=== PATIENT | male | born 1965 | race Caucasian/White ===

== ENCOUNTER 2020-11-26 04:47 | Emergency (ER) | payer MEDICARE, MEDICAID, SELFPAY ==
[2020-11-26 04:53] VITALS: BP 135/64; BP 140/90; PULSE 100; PULSE 110; RESP 20; TEMP 36.6; O2SAT 93; BMI 24.3
--- NOTE | 2020-11-26 04:59 | ED.SOB ---
HPI - SOB/Dyspnea General Chief Complaint: Asthma Stated Complaint: ASTHMA ATTACK ON&OFF FOR WEEKS,COUGH Time Seen by Provider: 11/26/20 04:59 Source: patient Mode of arrival: EMS Limitations: no limitations History of Present Illness HPI Narrative: Patient has history of asthma been feeling short of breath for last 1 week used the nebulizing treatment multiple times without much response been tested for COVID 2 weeks ago was negative no other family member is sick MD elicited complaint: shortness of breath and cough Pertinent past history: COPD and asthma Onset (ago): week(s) (1) Timing: constant Severity: moderate Known history of: COPD and asthma Treatment prior to arrival: bronchodilator Related Data Previous Rx's Medication Instructions Recorded prednisone 40 mg PO DAILY #10 tab 11/26/20 Allergies Allergy/AdvReac Type Severity Reaction Status Date / Time shellfish derived Allergy Severe ANAPHYLAXIS Verified 11/26/20 05:09 ibuprofen Allergy Intermediate Shortness Verified 11/26/20 05:10 of Breath mold [MOLD] Allergy Intermediate ASTHMA Verified 11/26/20 05:09 EXACERBATION DUST Allergy Intermediate ASTHMA Uncoded 11/26/20 05:09 EXACERBATION Review of Systems Review of Systems: Constitutional : No Weight loss, No Fever, No Chills ENT/Mouth : No sore throat, No Rhinorrhea Eyes: No Eye Pain, No Swelling Cardiovascular : No Chest Pain, no palpitations Respiratory : ++ Cough, No Sputum, ++shortness of breath Gastrointestinal : no Nausea, No Vomiting, No Diarrhea, No abdominal Pain, no black stools Genitourinary : No Dysuria, No Urinary Frequency Musculoskeletal : No joint pain, No Myalgias, No Joint Swelling Skin : No Skin Lesions, No rash Neuro : No Weakness, No Numbness, No Dizziness, No Headache Psych : No Anxiety/Panic, No Depression Heme/Lymph: No Bruising, No Lymphadenopathy Endocrine : No Polyuria, No Polydipsia All other systems reviewed and are negative PMFSH Social History Social History Smoking Status: Never smoker Use of substances other than those prescribed or required for medical reasons: No Advance Directives: No Physical Exam Vital Signs: Vital Signs: Last Vital Signs Temp 98 F 11/26/20 04:53 Pulse 81 11/26/20 06:05 Resp 19 11/26/20 05:04 BP 135/64 11/26/20 04:53 Pulse Ox 93 11/26/20 04:53 Body Mass Index 24.3 Appearance: Alert. Oriented X3. No acute distress. Eyes: Pupils equal, round and reactive to light. ENT: Pharynx normal. Neck: Normal inspection. Neck supple. CVS: Normal heart rate and rhythm. Pulses normal. Respiratory: Mild respiratory distress. Bilateral rhonchi and wheezing++ no rales or crackles Abdomen: Soft and nontender. Bowel sounds are present, no mass palpable, no CVA tenderness Skin: Skin warm and dry. Normal skin color. Normal skin turgor. Extremities: No lower extremity edema. Neuro: Oriented X 3. No motor deficit. No sensory deficit. MDM - SOB/Dyspnea Lab Data Result diagrams: 11/26/20 05:23 11/26/20 05:23 Labs: Lab Results 11/26/20 11/26/20 11/26/20 Range/Units 05:23 05:23 05:23 WBC 7.3 (4.8-10.8) X10*3/uL RBC 5.54 (4.60-5.80) X10*6/uL Hgb 16.8 (14.0-18.0) g/dl Hct 48.8 (42-52) % MCV 88.1 (80-98) fL MCH 30.3 (27.0-33.0) pg MCHC 34.4 (31.0-36.0) g/dl RDW 12.1 (11.0-16.0) % Plt Count 182 (160-400) X10*3/uL MPV 9.8 (9.4-12.4) fL Immature Gran % (Auto) 0.3 (0.0-0.4) % Neut % (Auto) 51.1 (45-73) % Lymph % (Auto) 28.3 (20-40) % [place] % (Auto) 7.1 (2-11) % Eos % (Auto) 12.8 H (0-4) % Baso % (Auto) 0.4 (0-2) % Lymph # (Auto) 2.1 (1.2-4.9) X10*3/uL [place] # (Auto) 0.5 (0.1-1.2) X10*3/uL Eos # (Auto) 0.9 H (0.0-0.4) X10*3/uL Baso # (Auto) 0.0 (0.0-0.2) X10*3/uL Abs Immat Gran (auto) 0.02 (0.00-0.03) X10*3/uL Absolute Neuts (auto) 3.7 (2.0-8.3) X10*3/uL Absolute Nucleated RBC 0.000 (0.0-0.012) X10*3/uL Nucleated RBC % (auto) 0.0 (0.0-0.2) /100WBC Sodium 140 (135-145) mmol/L Potassium 3.8 (3.3-5.1) mmol/l Chloride 105 (96-108) mmol/L Carbon Dioxide 27 (22-29) mmol/L Anion Gap 12 (12-20) BUN 15 (9-16) mg/dL Creatinine 0.99 (0.5-1.4) mg/dL Estim Creat Clear Calc 83.4 Estimated GFR > 60 Random Glucose 140 H (60-115) mg/dL Calcium 9.2 (8.4-10.2) mg/dL COVID-19 ([facility]) Negative (Negative) COVID-19 Clin Com See Note Discharge Plan Discharge Clinical Impression: Asthma with acute exacerbation Qualifiers: Asthma severity: moderate Asthma persistence: persistent Qualified Code(s): J45.41 - Moderate persistent asthma with (acute) exacerbation Patient Disposition: Home, Self-Care Instructions: Asthma (ED) Additional Instructions: Continue nebulizing treatment take prednisone as prescribed. Follow-up with your PCP and lung special Prescriptions: New prednisone 20 mg tablet 40 mg PO DAILY Qty: 10 RF: 0 Interventions: ED Discharge Assessment Last Done: 11/26/20 06:43
[2020-11-26 05:04] VITALS: RESP 19
--- NOTE | 2020-11-26 05:10 | XR_ITS ---
EXAMINATION: XR CHEST CLINICAL INFORMATION: Shortness of breath. Asthma. COMPARISON: 05/20/2020 TECHNIQUE: Frontal view of the chest was obtained. FINDINGS: Cardiac leads overlie the chest. The lungs are well expanded. There is no focal consolidation, edema, or effusion. No pneumothorax. The cardiomediastinal silhouette is within normal limits. No acute osseous abnormality. XR/XR chest 1V IMPRESSION: Clear lungs.
[2020-11-26 05:32] LABS: Basophils Percent Auto 0.4 % (0-2); Eosinophils Absolute Auto 0.9 X10*3/uL (0.0-0.4); Eosinophils Percent Auto 12.8 % (0-4); Hematocrit 48.8 % (42-52); Hemoglobin 16.8 g/dl (14.0-18.0); Imm Gran Abs Auto 0.02 X10*3/uL (0.00-0.03); Imm Gran Pct Auto 0.3 % (0.0-0.4); Lymphocytes Absolute Auto 2.1 X10*3/uL (1.2-4.9); Lymphocytes Percent Auto 28.3 % (20-40); MANUAL DIFF FLAG NO; Mean Corpuscular HGB Conc 34.4 g/dl (31.0-36.0); Mean Corpuscular Hemoglobin 30.3 pg (27.0-33.0); Mean Corpuscular Volume 88.1 fL (80-98); Mean Platelet Volume 9.8 fL (9.4-12.4); Monocytes Absolute Auto 0.5 X10*3/uL (0.1-1.2); Monocytes Percent Auto 7.1 % (2-11); Neutrophils Absolute Auto 3.7 X10*3/uL (2.0-8.3); Neutrophils Percent Auto 51.1 % (45-73); Platelet Count 182 X10*3/uL (160-400); Red Blood Count 5.54 X10*6/uL (4.60-5.80); Red Cell Distribution Width 12.1 % (11.0-16.0); White Blood Count 7.3 X10*3/uL (4.8-10.8)
[2020-11-26] MEDS: methylPREDNISolone Sod Succ/PF 125 MG/2 ML VIAL IVPUSH (05:32)
[2020-11-26] MEDS: Magnesium Sulfate/H2O 2 GM/50 ML PIGGYBACK IV (05:32)
[2020-11-26 05:45] LABS: COVID-19 Test Negative (Negative)
[2020-11-26 06:01] LABS: Anion Gap 12 (12-20); Blood Urea Nitrogen 15 mg/dL (9-16); Calcium 9.2 mg/dL (8.4-10.2); Carbon Dioxide 27 mmol/L (22-29); Chloride 105 mmol/L (96-108); Creatinine Clr Calc Pharmacy 83.4; Estimated Glomerular Filt Rate > 60; Glucose Random 140 mg/dL (60-115); Potassium 3.8 mmol/l (3.3-5.1); Sodium 140 mmol/L (135-145)
[2020-11-26] MEDS: Albuterol Sulfate (0.083%) 2.5 MG/3 ML VIAL.NEB 5 MG INHALE (06:03)
[2020-11-26] MEDS: Albuterol/Iprat 2.5/0.5MG 3 ML AMPUL.NEB INHALE (06:03)
[2020-11-26 06:05] VITALS: PULSE 81; O2SAT 97
[2020-11-26 07:16] VITALS: PULSE 18
== END 2020-11-26 07:17 | disposition home or self-care (01) ==
PROVIDERS: Emergency Provider Internal Medicine; PCP Internal Medicine
DX: J45.41 Moderate persistent asthma with (acute) exacerbation (principal); Z20.828 Contact with and (suspected) exposure to other viral communicable diseases
CPT/HCPCS: 36415; 71045; 80048; 85025; 87635; 94640; 96365; 96375; 99284; J2930; J3475

== ENCOUNTER 2021-07-25 15:10 | Emergency (ER) | payer MEDICARE, MEDICAID, SELFPAY | END 2021-07-25 15:53 | disposition left against medical advice (07) | PROVIDERS: Emergency Provider Emergency Medicine; PCP Internal Medicine | DX: R09.81 Nasal congestion (principal) ==

== ENCOUNTER 2022-04-05 15:45 | Emergency (ER) | payer MEDICARE, MEDICAID, SELFPAY ==
--- NOTE | 2022-04-05 | ECG_ITS ---
Test Reason : question sepsis Blood Pressure : / mmHG Vent. Rate : 100 BPM Atrial Rate : 100 BPM P-R Int : 144 ms QRS Dur : 106 ms QT Int : 342 ms P-R-T Axes : 071 090 058 degrees QTc Int : 441 ms Normal sinus rhythm Rightward axis Borderline ECG When compared with ECG of 20-MAY-2020 11:43, T wave amplitude has decreased in Anterior leads Referred By: Generic ED Physician Electronically Signed By:JOHN REECE MD
--- NOTE | ~2022-04-05 | CT_ITS ---
EXAMINATION: CT MAXILLOFACIAL WITHOUT CONTRAST CLINICAL INFORMATION: Fever and history of sinusitis. COMPARISON: None. TECHNIQUE: Multidetector helical imaging was performed in the axial plane with generation of coronal and sagittal reformatted images. This CT examination was performed using dose optimization techniques as appropriate, variously including the following: *Automated exposure control *Adjustment of mA and/or kV according to patient size (this includes techniques or standardized protocols for targeted exams where dose is matched to indication/reason for exam; i.e. extremities or head) *Use of iterative reconstruction technique DLP: 198 mGy-cm. FINDINGS: There is a moderate to large fluid level nearly opacifying the left maxillary sinus cavity. There are mixed density mucoid secretions and fluid subtotally opacifying the right maxillary sinus. Significant bilateral ethmoid sinus mucosal disease noted. There are fluid levels nearly opacifying the frontal sinuses. There is mucosal opacification of the left sphenoid sinus and near complete mucosal opacification of the right sphenoid sinus cavity. Multiple polypoid soft tissue densities are visible in the nasal passages bilaterally. There is a moderate rightward deviation of the nasal septum anteriorly and a leftward curvature posteriorly with nasal septal spurring. The ostiomeatal complexes are soft tissue opacified. The lamina papyracea are intact. The ethmoid roofs are nearly symmetric. The carotid canals are normally covered by bone. No maxillary periapical disease is seen. The mastoid air cells and visualized middle ear cavities are well aerated. The orbits are normal. The TMJs are unremarkable. The imaged portions of the brain demonstrate no acute abnormality. CT/CT sinus wo con IMPRESSION: Severe kaur sinus disease and nasal polyposis with a moderate sigmoidal-shaped nasal septal deviation and nasal septal spurring. Scattered fluid levels may be notified acute sinusitis.
[2022-04-05 16:28] VITALS: BP 154/95; PULSE 104; RESP 18; TEMP 37.8; O2SAT 95; BMI 29.1
[2022-04-05 16:49] LABS: MANUAL DIFF FLAG NO
[2022-04-05 16:51] LABS: Basophils Percent Auto 0.2 % (0-2); Eosinophils Percent Auto 0.1 % (0-4); Hematocrit 45.2 % (42.0-52.0); Hemoglobin 15.8 g/dl (14.0-18.0); Imm Gran Abs Auto 0.06 X10*3/uL (0.00-0.03); Imm Gran Pct Auto 0.4 % (0.0-0.4); Lymphocytes Absolute Auto 0.8 X10*3/uL (1.2-4.9); Lymphocytes Percent Auto 5.7 % (20-40); Mean Corpuscular Hemoglobin 30.6 pg (27.0-33.0); Mean Corpuscular Volume 87.4 fL (80.0-98.0); Mean Platelet Volume 9.7 fL (9.4-12.4); Monocytes Absolute Auto 0.8 X10*3/uL (0.1-1.2); Monocytes Percent Auto 5.7 % (2-11); Neutrophils Absolute Auto 12.9 x10*3/uL (2.0-8.3); Neutrophils Percent Auto 87.9 % (45-73); Platelet Count 157 X10*3/uL (160-400); Red Blood Count 5.17 X10*6/uL (4.60-5.80); White Blood Count 14.7 X10*3/uL (4.8-10.8)
[2022-04-05 17:04] LABS: Anion Gap 11 (12-20); Blood Urea Nitrogen 13 mg/dL (9-16); Carbon Dioxide 25 mmol/L (22-29); Chloride 104 mmol/L (96-108); Creatinine Clr Calc Pharmacy 108.4; Estimated Glomerular Filt Rate > 60; Glucose Random 142 mg/dL (60-115); Potassium 4.1 mmol/L (3.3-5.1); Sodium 136 mmol/L (135-145)
[2022-04-05 17:10] LABS: Influenza A Negative (Negative); Influenza B2 Negative (Negative)
[2022-04-05 17:15] LABS: COVID-19 Test Negative (Negative)
[2022-04-05 20:20] VITALS: BP 130/95; PULSE 110; RESP 20; TEMP 38; O2SAT 96
--- NOTE | 2022-04-05 20:26 | ED_ITS ---
HPI - Fever General Chief Complaint: Fever Stated Complaint: fever 102 sinus Time Seen by Provider: 04/05/22 20:26 Source: patient Mode of arrival: ambulatory Limitations: no limitations History of Present Illness HPI Narrative: Patient history of sinus infection for the last 2 months what antibiotic a month ago now is on Dupixent injections for last 1 month comes here with us had fever and chills today has chronic mild facial pain no urinary complaints no cough no shortness of breath no chest pain patient felt shivering prior to arrival PCP sent him here to rule out sepsis Related Data Previous Rx's Medication Instructions Recorded prednisone 20 mg tablet 40 mg PO DAILY #10 tab 11/26/20 amoxicillin 875 mg-potassium 1 tab PO BID #20 tab 04/05/22 clavulanate 125 mg tablet doxycycline hyclate 100 mg tablet 100 mg PO BID #20 tab 04/05/22 Allergies Allergy/AdvReac Type Severity Reaction Status Date / Time shellfish derived Allergy Severe ANAPHYLAXIS Verified 11/26/20 05:09 ibuprofen Allergy Intermediate Shortness Verified 11/26/20 05:10 of Breath mold [MOLD] Allergy Intermediate ASTHMA Verified 11/26/20 05:09 EXACERBATION DUST Allergy Intermediate ASTHMA Uncoded 11/26/20 05:09 EXACERBATION Review of Systems Review of Systems: Yes all other systems are reviewed and are negative [facility] Social History Social History Advance Directives: No Advance Directives Information Provided: Yes Physical Exam Vital Signs: Vital Signs: Last Vital Signs Temp 100.4 F 04/05/22 20:20 Pulse 110 H 04/05/22 20:20 Resp 20 04/05/22 20:20 BP 130/95 H 04/05/22 20:20 Pulse Ox 96 04/05/22 20:20 BMI result Body Mass Index 29.1 Appearance: Alert. Oriented X3. No acute distress. Eyes: PERRLA, No Nystagmus ENT: Pharynx normal. Oral Mucosa moist no mastoid tenderness no significant sinus tenderness Neck: Normal inspection. Neck supple. CVS: Normal heart rate and rhythm. Pulses normal. Respiratory: No respiratory distress. Equal air entry bilateral, no wheezing/rales/rhonchi Abdomen: Soft and nontender. Bowel sounds are present, no mass palpable, no CVA tenderness Skin: Skin warm and dry. Normal skin color. Normal skin turgor. Extremities: No lower extremity edema. No calf tenderness Neuro: Oriented X 3. No motor deficit. MDM - Fever MDM Narrative Medical decision making narrative: Patient with pansinusitis discharge patient home on doxycycline and Augmentin advised to follow-up with ENT Lab Data Attestation: I reviewed the patient's lab results. Result diagrams: 04/05/22 16:44 04/05/22 16:44 Labs: Lab Results 04/05/22 04/05/22 04/05/22 Range/Units 16:44 16:44 16:44 WBC 14.7 H (4.8-10.8) X10*3/uL RBC 5.17 (4.60-5.80) X10*6/uL Hgb 15.8 (14.0-18.0) g/dl Hct 45.2 (42.0-52.0) % MCV 87.4 (80.0-98.0) fL MCH 30.6 (27.0-33.0) pg MCHC 35.0 (31.0-36.0) g/dl RDW 12.0 (11.0-16.0) % Plt Count 157 L (160-400) X10*3/uL MPV 9.7 (9.4-12.4) fL Immature Gran % (Auto) 0.4 (0.0-0.4) % Neut % (Auto) 87.9 H (45-73) % Lymph % (Auto) 5.7 L (20-40) % [place] % (Auto) 5.7 (2-11) % Eos % (Auto) 0.1 (0-4) % Baso % (Auto) 0.2 (0-2) % Lymph # (Auto) 0.8 L (1.2-4.9) X10*3/uL [place] # (Auto) 0.8 (0.1-1.2) X10*3/uL Eos # (Auto) 0.0 (0.0-0.4) X10*3/uL Baso # (Auto) 0.0 (0.0-0.2) X10*3/uL Abs Immat Gran (auto) 0.06 H (0.00-0.03) X10*3/uL Absolute Neuts (auto) 12.9 H (2.0-8.3) x10*3/uL Absolute Nucleated RBC 0.000 (0.0-0.012) X10*3/uL Nucleated RBC % (auto) 0.0 (0.0-0.2) /100WBC Sodium 136 (135-145) mmol/L Potassium 4.1 (3.3-5.1) mmol/L Chloride 104 (96-108) mmol/L Carbon Dioxide 25 (22-29) mmol/L Anion Gap 11 L (12-20) BUN 13 (9-16) mg/dL Creatinine 0.97 (0.5-1.4) mg/dL Estim Creat Clear Calc 108.4 Estimated GFR > 60 Random Glucose 142 H (60-115) mg/dL Lactic Acid (0.5-2.0) mmol/L Calcium 9.0 (8.4-10.2) mg/dL Urine Color Urine Appearance Urine pH (5.0-8.0) Ur Specific [place] (1.005-1.025) Urine Protein (NEG-TRACE) MG/DL Urine Glucose (UA) (NEG) MG/DL Urine Ketones (NEG) MG/DL Urine Blood (NEG) Urine Nitrite (NEG) Ur Leukocyte Esterase (NEG) COVID-19 ([facility]) (Negative) COVID-19 Clin Com Influenza Type A (ELO) Negative (Negative) Influenza Type B (ELO) Negative (Negative) Influenza A & B Note See Note 04/05/22 04/05/22 04/05/22 Range/Units 16:44 20:54 21:09 WBC (4.8-10.8) X10*3/uL RBC (4.60-5.80) X10*6/uL Hgb (14.0-18.0) g/dl Hct (42.0-52.0) % MCV (80.0-98.0) fL MCH (27.0-33.0) pg MCHC (31.0-36.0) g/dl RDW (11.0-16.0) % Plt Count (160-400) X10*3/uL MPV (9.4-12.4) fL Immature Gran % (Auto) (0.0-0.4) % Neut % (Auto) (45-73) % Lymph % (Auto) (20-40) % [place] % (Auto) (2-11) % Eos % (Auto) (0-4) % Baso % (Auto) (0-2) % Lymph # (Auto) (1.2-4.9) X10*3/uL [place] # (Auto) (0.1-1.2) X10*3/uL Eos # (Auto) (0.0-0.4) X10*3/uL Baso # (Auto) (0.0-0.2) X10*3/uL Abs Immat Gran (auto) (0.00-0.03) X10*3/uL Absolute Neuts (auto) (2.0-8.3) x10*3/uL Absolute Nucleated RBC (0.0-0.012) X10*3/uL Nucleated RBC % (auto) (0.0-0.2) /100WBC Sodium (135-145) mmol/L Potassium (3.3-5.1) mmol/L Chloride (96-108) mmol/L Carbon Dioxide (22-29) mmol/L Anion Gap (12-20) BUN (9-16) mg/dL Creatinine (0.5-1.4) mg/dL Estim Creat Clear Calc Estimated GFR Random Glucose (60-115) mg/dL Lactic Acid 1.8 (0.5-2.0) mmol/L Calcium (8.4-10.2) mg/dL Urine Color YELLOW Urine Appearance CLEAR Urine pH 6.0 (5.0-8.0) Ur Specific [place] <= 1.005 (1.005-1.025) Urine Protein NEG (NEG-TRACE) MG/DL Urine Glucose (UA) NEG (NEG) MG/DL Urine Ketones NEG (NEG) MG/DL Urine Blood NEG (NEG) Urine Nitrite NEG (NEG) Ur Leukocyte Esterase NEG (NEG) COVID-19 ([facility]) Negative (Negative) COVID-19 Clin Com See Note Influenza Type A (ELO) (Negative) Influenza Type B (ELO) (Negative) Influenza A & B Note Discharge Plan Discharge Clinical Impression: Sinusitis Patient Disposition: Home, Self-Care Instructions: Sinusitis (ED) Additional Instructions: Take antibiotic as prescribed Follow-up with ENT specialist next week Prescriptions: New doxycycline hyclate 100 mg tablet 100 mg PO BID Qty: 20 0RF amoxicillin-pot clavulanate 875-125 mg tablet 1 tab PO BID Qty: 20 0RF No Action prednisone 20 mg tablet 40 mg PO DAILY Qty: 10 0RF Interventions: ED Discharge Assessment Last Done: 04/05/22 22:39 Discharge Date/Time: 04/05/22 22:40
[2022-04-05 21:10] LABS: Lactic Acid 1.8 mmol/L (0.5-2.0)
[2022-04-05 21:17] LABS: Appearance Urine CLEAR; Color Urine YELLOW; Glucose Urine UA NEG (NEG); Leukocyte Esterase Urine NEG (NEG); Nitrite Urine NEG (NEG); Specific Gravity - Urine <= 1.005 (1.005-1.025); Urine Blood NEG (NEG); Urine Ketones NEG (NEG); Urine Protein NEG (NEG-TRACE)
[2022-04-05] MEDS: Amoxicillin/Potassium Clav 875 MG TABLET PO (22:38)
== END 2022-04-05 22:40 | disposition home or self-care (01) ==
PROVIDERS: Emergency Provider Internal Medicine; PCP Internal Medicine
DX: J32.9 Chronic sinusitis, unspecified (principal); R50.9 Fever, unspecified; Z20.822 Contact with and (suspected) exposure to COVID-19; Z79.899 Other long term (current) drug therapy
CPT/HCPCS: 36415; 70486; 80048; 81003; 83605; 85025; 87040; 87502; 87635; 93005; 99283; 99284

== ENCOUNTER 2025-02-17 13:39 | Emergency (ER) | payer MEDICARE, MEDICAID, SELFPAY ==
--- NOTE | ~2025-02-17 | XR_ITS ---
EXAMINATION: XR CHEST 1 VIEW HISTORY: palpitations COMPARISON: Comparison is made with the prior examination dated 11/26/2020. FINDINGS: A single AP portable view of the chest performed at 2:26 PM is submitted. The lungs are hyperinflated, consistent with COPD. The lungs are clear. There is no pleural effusion, pneumothorax, or pulmonary vascular congestion. The heart is normal in size. The bones are intact. XR/XR chest 1V IMPRESSION: COPD. No acute cardiopulmonary abnormality. Electronically signed by: West Rubio MD 02/17/2025 02:31 PM EDT
[2025-02-17 14:05] VITALS: BP 101/66; PULSE 82; RESP 18; TEMP 36.7; O2SAT 95; BMI 29.5
--- NOTE | 2025-02-17 14:08 | ECG_ITS ---
Test Reason : palpitations Blood Pressure : */* mmHG Vent. Rate : 70 BPM Atrial Rate : 70 BPM P-R Int : 154 ms QRS Dur : 108 ms QT Int : 384 ms P-R-T Axes : 82 88 58 degrees QTcB Int : 414 ms Normal sinus rhythm with sinus arrhythmia Normal ECG When compared with ECG of 05-Apr-2022 16:33, No significant change was found Referred By: Gavi Bolden Electronically Signed By: JOHN REECE MD
--- NOTE | 2025-02-17 14:10 | ED.GENADULT ---
HPI - General Adult General Chief complaint: General Medical Stated complaint: Anxiety Time Seen by Provider: 02/17/25 18:58 Source: patient Mode of arrival: ambulatory Limitations: no limitations History of Present Illness ED Provider: HPI narrative: Patient's history of anxiety disorder on Paxil and Klonopin feeling more anxious lately denies any significant stress patient is supposed to the Klonopin 0.5 mg 4 times a day but taking only 2 tablets a day been having more anxiety/panic attack for last few weeks denies any SI or depression Related Data Previous Rx's ?Medication ?Instructions ?Recorded prednisone 20 mg tablet 40 mg (2 x 20 mg) PO DAILY #10 tabs 11/26/20 amoxicillin 875 mg-potassium 1 tab PO BID #20 tabs 04/05/22 clavulanate 125 mg tablet doxycycline hyclate 100 mg tablet 100 mg PO BID #20 tabs 04/05/22 Allergies Allergy/AdvReac Type Severity Reaction Status Date / Time shellfish derived Allergy Severe ANAPHYLAXIS Verified 11/26/20 05:09 ibuprofen Allergy Intermediate Shortness Verified 11/26/20 05:10 of Breath mold [MOLD] Allergy Intermediate ASTHMA Verified 11/26/20 05:09 EXACERBATION NSAIDS (Non-Steroidal Allergy Anaphylaxis Verified 02/17/25 14:10 Anti-Inflamma DUST Allergy Intermediate ASTHMA Uncoded 11/26/20 05:09 EXACERBATION Review of Systems Review of Systems: Yes all other systems are reviewed and are negative [facility] Social History Social History Advance Directives: No Advance Directives Information Provided: No Physical Exam ED Vital Signs: Vital Signs - 24 hr 02/17/25 14:05 02/17/25 20:37 02/17/25 21:01 Temperature 98.1 F 98.0 F Pulse Rate 82 85 85 Respiratory Rate 18 16 16 Blood Pressure 101/66 117/76 117/76 Pulse Oximetry 95 96 96 Oxygen Delivery Method Room Air Room Air Room Air BMI result Body Mass Index 29.5 Appearance: Alert. Oriented X3. No acute distress. Eyes: No pallor or icterus ENT: Pharynx normal. Oral Mucosa moist Neck: Normal inspection. Neck supple. CVS: Normal heart rate and rhythm. Pulses normal. Respiratory: No respiratory distress. Equal air entry bilateral, no wheezing/rales/rhonchi Abdomen: Soft and nontender. Bowel sounds are present, no mass palpable, no CVA tenderness Skin: Skin warm and dry. Normal skin color. Normal skin turgor. Extremities: No lower extremity edema. No calf tenderness psych: Anxious denies any suicidal ideation no significant depressed Neuro: Oriented X 3. No motor deficit. No sensory deficit. Course Course Course Narrative: This is a 59-year-old male with a history of asthma and anxiety who presents with palpitations. Patient has been having intermittent palpitations when he ?lifts his leg in the air?. Denies chest pain or shortness of breath. He also states his anxiety has been poorly controlled recently, he is not sure why. Denies SI. We will be screening basic labs, troponin, EKG and chest x-ray. The patient was stable and can return to the waiting room pending his full medical assessment. Medications Administered Discontinued Medications Generic Name Dose Route Start Last Admin Trade Name Freq PRN Reason Stop Dose Admin Lorazepam 2 mg 02/17/25 19:03 02/17/25 19:34 Lorazepam 1 Mg Tablet PO 02/17/25 19:04 2 mg ONCE ONE Administration Medical Decision Making Medical Decision Making [facility] Narrative: Patient has acute panic attack improved after lorazepam 2 mg advised to follow up with psychiatrist and continue to Klonopin and Paxil Lab Data [facility] Lab Attestation statement: I reviewed the patient's lab results. 02/17/25 14:20 02/17/25 14:20 Labs: Lab Results 02/17/25 Range/Units 14:20 WBC 4.9 (4.8-10.8) X10*3/uL RBC 5.09 (4.60-5.80) X10*6/uL Hgb 15.7 (14.0-18.0) g/dl Hct 44.9 (42.0-52.0) % MCV 88.2 (80.0-98.0) fL MCH 30.8 (27.0-33.0) pg MCHC 35.0 (31.0-36.0) g/dl RDW 11.9 (11.0-16.0) % Plt Count 175 (160-400) X10*3/uL MPV 10.3 (9.4-12.4) fL Immature Gran % (Auto) 0.2 (0.0-0.4) % Neut % (Auto) 53.0 (45-73) % Lymph % (Auto) 27.8 (20-40) % [place] % (Auto) 9.4 (2-11) % Eos % (Auto) 9.0 H (0-4) % Baso % (Auto) 0.6 (0-2) % Lymph # (Auto) 1.4 (1.2-4.9) X10*3/uL [place] # (Auto) 0.5 (0.1-1.2) X10*3/uL Eos # (Auto) 0.4 (0.0-0.4) X10*3/uL Baso # (Auto) 0.0 (0.0-0.2) X10*3/uL Abs Immat Gran (auto) 0.01 (0.00-0.03) X10*3/uL Absolute Neuts (auto) 2.6 (2.0-8.3) x10*3/uL Absolute Nucleated RBC 0.000 (0.0-0.012) X10*3/uL Nucleated RBC % (auto) 0.0 (0.0-0.2) /100WBC Sodium 140 (135-145) mmol/L Potassium 3.9 (3.3-5.1) mmol/L Chloride 107 (96-108) mmol/L Carbon Dioxide 27 (22-29) mmol/L Anion Gap 10 L (12-20) BUN 18 H (9-16) mg/dL Creatinine 1.03 (0.5-1.4) mg/dL Estim Creat Clear Calc 93.5 Estimated GFR > 60 Random Glucose 115 (60-115) mg/dL Calcium 9.3 (8.4-10.2) mg/dL Magnesium 2.3 (1.6-2.6) mg/dL Total Bilirubin 1.0 (0.0-1.0) mg/dL AST 63 H (5-37) U/L ALT 55 H (0-40) U/L Alkaline Phosphatase 59 (39-117) U/L Troponin I High Sens < 2.7 (<3.5-35.0) ng/L Total Protein 6.8 (6.5-8.0) g/dL Albumin 4.3 (3.5-5.0) g/dL Discharge Plan Discharge Clinical Impression: Panic attack Patient Disposition: Home, Self-Care Instructions: Anxiety (ED), Panic Attack (ED) Additional Instructions: Take your Klonopin and Paxil as prescribed and follow up with psychiatrist Prescriptions: No Action prednisone 20 mg tablet 40 mg PO DAILY Qty: 10 0RF doxycycline hyclate 100 mg tablet 100 mg PO BID Qty: 20 0RF amoxicillin-pot clavulanate 875-125 mg tablet 1 tab PO BID Qty: 20 0RF Referrals: Dennys Lee MD [Physician] - 2 weeks Interventions: ED Discharge Assessment Last Done: 02/17/25 21:01 Discharge Date/Time: 02/17/25 21:07 Print Language: Afghan
[2025-02-17 14:26] LABS: MANUAL DIFF FLAG NO
[2025-02-17 14:31] LABS: Basophils Percent Auto 0.6 % (0-2); Eosinophils Absolute Auto 0.4 X10*3/uL (0.0-0.4); Hematocrit 44.9 % (42.0-52.0); Hemoglobin 15.7 g/dl (14.0-18.0); Imm Gran Abs Auto 0.01 X10*3/uL (0.00-0.03); Imm Gran Pct Auto 0.2 % (0.0-0.4); Lymphocytes Absolute Auto 1.4 X10*3/uL (1.2-4.9); Lymphocytes Percent Auto 27.8 % (20-40); Mean Corpuscular Hemoglobin 30.8 pg (27.0-33.0); Mean Corpuscular Volume 88.2 fL (80.0-98.0); Mean Platelet Volume 10.3 fL (9.4-12.4); Monocytes Absolute Auto 0.5 X10*3/uL (0.1-1.2); Monocytes Percent Auto 9.4 % (2-11); Neutrophils Absolute Auto 2.6 x10*3/uL (2.0-8.3); Platelet Count 175 X10*3/uL (160-400); Red Blood Count 5.09 X10*6/uL (4.60-5.80); Red Cell Distribution Width 11.9 % (11.0-16.0); White Blood Count 4.9 X10*3/uL (4.8-10.8)
[2025-02-17 14:54] LABS: Troponin-I High Sensitivity < 2.7 ng/L (<3.5-35.0)
[2025-02-17 14:55] LABS: Albumin Level 4.3 g/dL (3.5-5.0); Alkaline Phosphatase 59 U/L (39-117); Anion Gap 10 (12-20); Aspartate Amino Transferase 63 U/L (5-37); Blood Urea Nitrogen 18 mg/dL (9-16); Calcium 9.3 mg/dL (8.4-10.2); Carbon Dioxide 27 mmol/L (22-29); Chloride 107 mmol/L (96-108); Creatinine Clr Calc Pharmacy 93.5; Estimated Glomerular Filt Rate > 60; Glucose Random 115 mg/dL (60-115); Magnesium 2.3 mg/dL (1.6-2.6); Potassium 3.9 mmol/L (3.3-5.1); Sodium 140 mmol/L (135-145); Total Protein 6.8 g/dL (6.5-8.0)
[2025-02-17 15:26] LABS: Alanine Aminotransferase 55 U/L (0-40)
[2025-02-17] MEDS: LORazepam 1 MG TABLET 2 MG PO (19:34)
[2025-02-17 20:37] VITALS: BP 117/76; PULSE 85; RESP 16; O2SAT 96
[2025-02-17 21:01] VITALS: BP 117/76; PULSE 85; RESP 16; TEMP 36.7; O2SAT 96
== END 2025-02-17 21:07 | disposition home or self-care (01) ==
PROVIDERS: Physician Assistant Medical; Emergency Provider Internal Medicine; PCP Internal Medicine
DX: F41.0 Panic disorder [episodic paroxysmal anxiety] (principal); R00.2 Palpitations
CPT/HCPCS: 36415; 71045; 80053; 83735; 84484; 85025; 93005; 99283; 99284

== ENCOUNTER → 2025-02-17 14:08 | Outpatient (BNV) | payer MEDICARE, MEDICAID, SELFPAY | PROVIDERS: Emergency Provider Internal Medicine; PCP Internal Medicine; Visit Provider Internal Medicine Cardiovascular Disease | DX: R00.2 Palpitations (principal) | CPT/HCPCS: 93010 ==

== ENCOUNTER → 2025-02-17 14:08 | Outpatient (BNV) | payer MEDICARE, MEDICAID, SELFPAY | PROVIDERS: PCP Internal Medicine; Visit Provider Radiology Diagnostic Radiology | DX: R00.2 Palpitations (principal) | CPT/HCPCS: 71045 ==

== ENCOUNTER 2025-06-02 14:57 | Outpatient (REF) | payer MEDICARE, MEDICAID, SELFPAY ==
--- OUTSIDE RECORDS SUMMARY | 2025-06-02 15:41 | XMS_ITS | Data Portability ---
Author Organization [place] - [facility], Allergy Address [address] [address] Care Team Providers Care Facility Assistant Name Role Phone EDUARDO BAILEY Primary Care Provider [phone] Assessment Encounter Date Assessment Date Assessment LastModified by Organization Details LastModified Time 11/13/2024 11/13/2024 Patient with aspirin exacerbated respiratory disease who was scheduled to have surgery in the spring 2022. This was canceled due to acute bronchitis. He subsequently required biologic therapy for his asthma. He is presently on fexofenadine, budesonide nasal irrigations and Breo elliptica. He has been doing Dupixent shots for the last 4 months and notes significant improvement. He still has some nasal congestion. Examination shows septal deviation with bilateral polyps left greater than right. He still has residual polyps but symptomatically he is improved. We will see how things go over the next several months. He will be consistent with the budesonide irrigations and the Dupixent. We will check a CBC with differential to monitor his eosinophil count. [email or web address] Not available 11/13/2024 15:02:42 Plan of Treatment Reminders Order Date Submit Date Provider Last Modified By Organization Details Last Modified Time Details Appointments None record ed. Lab CBC w/ auto diff 024 11/13/20 24 YOHANA [facility] (Centralized Electronic Ordering - All Locations), Patient Can Go To The Location Of Their Choice, [id number] 4 01:16:20 Referral None record ed. Procedures None record ed. Surgeries None record ed. Imaging None record ed. Medication Orders None record ed. Patient TargetsNo targets recorded. Patient InstructionsNo instructions recorded. Reason for Referral None Reported. Results Created Date Observation Date Name Description Value Unit Range Abnormal Flag Note LastModifiedBy Organization Detail LastModifiedTime 11/13/20 24 11/14/2024 CBC WITH DIFFE RENTI AL/PL ATELE T WBC 6.1 x10e3 /uL 3.4-10 .8 normal Not Available [facility] ([facility]) [address] [place], [address], 11/14/2024 01:16:20 11/13/20 24 11/14/2024 CBC WITH DIFFE RENTI AL/PL ATELE T RBC 4.98 x10e6 /uL 4.14-5 .80 normal Not Available [facility] ([facility]) [address] [place], [address], 11/14/2024 01:16:20 11/13/20 24 11/14/2024 CBC WITH DIFFE RENTI AL/PL ATELE T hemoglobin 15.8 g/dL 13.0-1 7.7 normal Not Available [facility] ([facility]) [address] [place], [address], 11/14/2024 01:16:20 11/13/20 24 11/14/2024 CBC WITH DIFFE RENTI AL/PL ATELE T hematocrit 45.9 % 37.5-5 1.0 normal Not Available [facility] ([facility]) [address] [place], [address], 11/14/2024 01:16:20 11/13/20 24 11/14/2024 CBC WITH DIFFE RENTI AL/PL ATELE T MCV 92 fL 79-97 normal Not Available [facility] ([facility]) [address] [place], [address], 11/14/2024 01:16:20 11/13/20 24 11/14/2024 CBC WITH DIFFE RENTI AL/PL ATELE T MCH 31.7 pg 26.6-3 3.0 normal Not Available [facility] ([facility]) [address] [facility] [place], [address], 11/14/2024 01:16:20 11/13/20 24 11/14/2024 CBC WITH DIFFE RENTI AL/PL ATELE T MCHC 34.4 g/dL 31.5-3 5.7 normal Not Available [facility] ([facility]) [address] [facility], [place], [address], 11/14/2024 01:16:20 11/13/20 24 11/14/2024 CBC WITH DIFFE RENTI AL/PL ATELE T RDW 12.4 % 11.6-1 5.4 Not Available [facility] ([facility]) [address] [facility], [place], [address], 11/14/2024 01:16:20 11/13/20 24 11/14/2024 CBC WITH DIFFE RENTI AL/PL ATELE T platelets 172 x10e3 /uL 150-45 0 normal Not Available [facility] ([facility]) [address] [facility], [place], [address], 11/14/2024 01:16:20 11/13/20 24 11/14/2024 CBC WITH DIFFE RENTI AL/PL ATELE T neutrophils 54 % not estab. normal Not Available [facility] ([facility]) [address] [place], [address], 11/14/2024 01:16:20 11/13/20 24 11/14/2024 CBC WITH DIFFE RENTI AL/PL ATELE T lymphs 26 % not estab. normal Not Available [facility] ([facility]) [address] [place], [address], 11/14/2024 01:16:20 11/13/20 24 11/14/2024 CBC WITH DIFFE RENTI AL/PL ATELE T monocytes 8 % not estab. normal Not Available [facility] ([facility]) [address] [place], [address], 11/14/2024 01:16:20 11/13/20 24 11/14/2024 CBC WITH DIFFE RENTI AL/PL ATELE T eos 11 % not estab. normal Not Available [facility] ([facility]) [address] [facility], [place], [address], 11/14/2024 01:16:20 11/13/20 24 11/14/2024 CBC WITH DIFFE RENTI AL/PL ATELE T basos 1 % not estab. normal Not Available [facility] ([facility]) [address] [place], [address], 11/14/2024 01:16:20 11/13/20 24 11/14/2024 CBC WITH DIFFE RENTI AL/PL ATELE T immature cells SOIL ANALYST Not Available [facility] ([facility]) [address] [place], [address], 11/14/2024 01:16:20 11/13/20 24 11/14/2024 CBC WITH DIFFE RENTI AL/PL ATELE T neutrophils (absolute) 3.3 x10e3 /uL 1.4-7. 0 normal Not Available [facility] ([facility]) [address] [place], [address], 11/14/2024 01:16:20 11/13/20 24 11/14/2024 CBC WITH DIFFE RENTI AL/PL ATELE T lymphs (absolute) 1.6 x10e3 /uL 0.7-3. 1 normal Not Available [facility] ([facility]) [address] [place], [address], 11/14/2024 01:16:20 11/13/20 24 11/14/2024 CBC WITH DIFFE RENTI AL/PL ATELE T monocytes(ab solute) 0.5 x10e3 /uL 0.1-0. 9 normal Not Available [facility] ([facility]) [address] [place], [address], 11/14/2024 01:16:20 11/13/20 24 11/14/2024 CBC WITH DIFFE RENTI AL/PL ATELE T eos (absolute) 0.7 x10e3 /uL 0.0-0. 4 above high normal Not Available [facility] ([facility]) [address] [facility], [place], [address], 11/14/2024 01:16:20 11/13/20 24 11/14/2024 CBC WITH DIFFE RENTI AL/PL ATELE T baso (absolute) 0.1 x10e3 /uL 0.0-0. 2 normal Not Available [facility] ([facility]) [address] [facility], [place], [address], 11/14/2024 01:16:20 11/13/20 24 11/14/2024 CBC WITH DIFFE RENTI AL/PL ATELE T immature granulocytes 0 % not estab. Not Available [facility] ([facility]) [address] [facility], [place], [address], 11/14/2024 01:16:20 11/13/20 24 11/14/2024 CBC WITH DIFFE RENTI AL/PL ATELE T immature grans (abs) 0.0 x10e3 /uL 0.0-0. 1 Not Available [facility] ([facility]) [address] [place], [address], 11/14/2024 01:16:20 11/13/20 24 11/14/2024 CBC WITH DIFFE RENTI AL/PL ATELE T NRBC SOIL ANALYST Not Available [facility] ([facility]) [address] [place], [address], 11/14/2024 01:16:20 11/13/20 24 11/14/2024 CBC WITH DIFFE RENTI AL/PL ATELE T hematology comments: SOIL ANALYST Not Available [facility] ([facility]) [address] [place], [address], 11/14/2024 01:16:20 Result Notes None recorded. 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 481558055 Active 2020 Coagulatio n defects: Other hemorrhagi c disorder due to intrinsic circulatin g anticoagul ants, antibodies , or inhibitors ; Note: Date Diagnosed: 09/01/2015 8:41 AM () Not Available [facility] 4 02:39:42 Disorder of respirato ry system 25328671 Active 2020 Respirator y conditions due to other specified external agents; CMS Risk: moderate risk Note: Date Diagnosed: 09/01/2015 8:43 AM (J70.8) Not Available [facility] 4 02:39:44 Acute upper respirato ry infection 44248253 Active 2022 Acute upper respirator y infection, unspecifie d; Note: Date Diagnosed: 12/19/2022 8:10 AM (J06.9) Not Available [facility] 4 02:39:32 Chronic rhinitis 07416249 Active 2020 Chronic rhinitis; Note: Date Diagnosed: 08/08/2021 2:19 PM (J31.0) Not Available [facility] 4 02:39:38 Uncomplic ated moderate persisten t asthma 025840454 Active 2020 Moderate persistent asthma, uncomplica ksenia; Note: Date Diagnosed: 08/08/2021 2:24 PM (J45.40) Not Available [facility] 4 02:39:35 Deviated nasal septum 052121182 Active 2020 Deviated nasal septum; Note: Date Diagnosed: 08/08/2021 2:20 PM (J34.2) Not Available [facility] 4 02:39:38 Epistaxis Active 2020 Epistaxis; Note: Date Diagnosed: 09/01/2015 8:41 AM () Not Available [facility] 4 02:39:36 Long-term current use of anticoagu lant 788837087 Active 2020 [facility] (current) use of anticoagul ants; Note: Date Diagnosed: 09/01/2015 8:42 AM () Not Available [facility] 4 02:39:41 Polyp of nasal cavity 348245124 Active 2020 Polyp of nasal cavity; CMS Risk: moderate risk Note: Date Diagnosed: 09/01/2015 8:43 AM (J33.0) Not Available [facility] 4 02:39:44 Acute sinusitis 56766832 Active 2021 Other acute sinusitis; Note: Date Diagnosed: 06/01/2022 4:44 PM (J01.80) Not Available [facility] 4 02:39:36 Bleeding from nose 193891391 Active 2020 Epistaxis; Note: Date Diagnosed: 09/01/2015 8:42 AM () Not Available [facility] 4 02:39:39 Chronic sinusitis 31898032 Active 2023 MICHAEL BUSTOS MD [address] [place] [address], [place], [address] , [facility] - [facility] 4 17:13:20 Moderate persisten t asthma 053051809 Active 2023 MICHAEL BUSTOS MD [address] [place] [address], [place], [address] , [facility] 4 15:02:05 Polyp of nasal cavity and/or nasal sinus 330949190 Active 2023 MICHAEL BUSTOS MD [address] [place] [address], [place], [address] , [facility] - [facility] 4 15:02:05 Problem Notes None recorded. Procedures Surgical History Date Name Laterality Status Provider Name and Address Organization Details Recorded Time 4 JMSNasal/Sinu s Endoscopy-SUMIT OR surgical cavities completed MICHAEL KLEIN MD [address] [place] [address], [place], [address], [facility] - [facility] 08/14/2024 21:07:59 Imaging Results None recorded. Procedure Notes None recorded. Medical Equipment None Reported. Allergies Allergen ID Allergen Name Allergen Category Reaction Reaction Severity Criticality Documentation Date Start Date Code Code System Note Provider Name and Address Organization Details Recorded Time Non-stero idal anti-infl ammatory agent (product) medicatio n other Not available Not available 04/08/2024 03802 005 SNOMED React ion: other react ion, Unkno wn; Not Available [facility] 4 01:00:30 81117 shellfish derived food,medi cation other Not available Not available 04/08/2024 00827 UNK React ion: other react ion, Unkno wn; Not Available [facility] 4 01:00:33 Medications Name Sig Start Date Stop Date Status Note LastModified by Organization Details LastModified Time prednison e 10 mg tablet TAKE 4 TABLETS BY MOUTH FOR 2 DAYS 3 TABLETS FOR 2 DAYS 2 TABLETS FOR 2 DAYS AND 1 TABLET FOR 4 DAYS active Not Available Not Available No t Available doxycycli ne hyclate 100 mg capsule active Medicati on ID: [id number] B rand Name: doxycycl ine hyclate Send Method: E-Prescr ibed Sub s Allowed: subs OK Medic ationGen ericName : doxycycl ine hyclate Not Available Not Available Not Available prednison e 20 mg tablet 2022 active Medicati on ID: [id number] D uration Value: 9 Brand Name: predniso ne Send Method: E-Prescr ibed Sub s Allowed: subs OK Speci al Instruct ion: take 3 tabs daily for 3 days, 2 tab daily for 3 days and then 1 tab for 3 days Med icationG enericNa me: predniso ne Not Available Not Available Not Available clonazepa m 0.5 mg tablet TAKE 1 TABLET BY MOUTH EVERY MORNING. 1 TABLET EVERY EVENING AND 2 TABLETS EVERY NIGHT AT BEDTIME active Not Available Not Available No t Available sulfameth oxazole 800 mg-trimet hoprim 160 mg tablet Take 1 tablet by mouth twice a day 2021 active Medicati on ID: [id number] D uration Value: 10 Brand Name: sulfamet hoxazole -trimeth oprim Se nd Method: E-Prescr ibed Sub s Allowed: subs OK Medic ationGen ericName : sulfamet hoxazole -trimeth oprim Not Available Not Available Not Available paroxetin e 20 mg tablet TAKE 1 TABLET BY MOUTH EVERY DAY active Not Available Not Available No t Available omeprazol e 20 mg capsule,d elayed release TAKE 1 CAPSULE BY MOUTH TWICE DAILY active Not Available Not Available No t Available budesonid e 0.5 mg/2 mL suspensio n for nebulizat ion Mix 1 vial in 8 ounces of distille d water with a buffered saline packet. Irrigate nose twice daily. Use half a bottle on each side 2023 active Not Available Not Available Not Avai lable epinephri ne 0.3 mg/0.3 mL injection , auto-inje ctor INJECT 0.3ML ONCE active Not Available Not Available No t Available levofloxa hawa 500 mg tablet active Medicati on ID: [id number] B rand Name: levoflox acin Sen d Method: E-Prescr ibed Sub s Allowed: subs OK Medic ationGen ericName : levoflox acin Not Available Not Available Not Available fluticaso ne propionat e 50 mcg/actua tion nasal spray,susanne pension SPRAY TWICE IN EACH NOSTRIL ONCE EVERY DAY active Not Available Not Available No t Available amoxicill in 875 mg-potass ium clavulana te 125 mg tablet TAKE 1 TABLET BY MOUTH TWICE DAILY active Not Available Not Available No t Available Ventolin HFA 90 mcg/actua tion aerosol inhaler INHALE 2 PUFFS BY MOUTH EVERY 4 TO 6 HOURS NEEDED active Not Available Not Available No t Available ciclopiro x 0.77 % topical gel APPLY TO THE AFFECTED AREA TWICE DAILY active Not Available Not Available No t Available Saline 03/16 completed Medicati on ID: [id number] D uration Value: 30 Prescri bed By Name: Alyssa Sherwood nd Name: saline S end Method: E-Prescr ibed Sub s Allowed: subs OK Speci al Instruct ion: dispense 1 liter bottle of sterile saline for daily irrigati on Medic ationGen ericName : saline Not Available Not Available Not Available Breo Ellipta 200 mcg-25 mcg/dose powder for inhalatio n INHALE 1 PUFF BY MOUTH DAILY active Not Available Not Available No t Available Nucala 100 mg/mL subcutane ous auto-inje ctor 06/28 completed Medicati on ID: [id number] B rand Name: Nucala S end Method: E-Prescr ibed Sub s Allowed: subs OK Medic ationGen ericName : Nucala Not Available Not Available Not Available Dupixent 300 mg/2 mL subcutane ous pen injector active Not Available Not Available Not Available BinaxNOW COVID-19 Ag Self Test kit TEST DIRECTED TODAY active Not Available Not Available No t Available Paxlovid 300 mg (150 mg x 2)-100 mg tablets in a dose pack TAKE BY MOUTH DIRECTED FOLLOW PACKAGE INSTRUCT IONS active Not Available Not Available No t Available Vitals Date Recorded Body height Body mass index (BMI) Body weight Provider Name and Address Organization Details Last Updated DateTime 11/13/2024 182.88 cm 30.5 kg/m2 133971.28 g Phoenix Reilly [place] - [facility] 11/13/2024 14:44:48 Social History None recorded. Functional Status None recorded. Mental Status None recorded. Family History Nothing Reported. Medical History No medical history recorded. Past Encounters Encounter ID Performer Location Encounter Start Date Encounter Closed Date Diagnosis/Indication Diagnosis SNOMED-CT Code Diagnosis ICD10 Code Diagnosis Note [id number] MICHAEL BUSTOS MD [facility] [address] [address] 11/13/2024 14:27:21 11/13/2024 15:10:19 Allergy to drug 373916424 Z88.6 Polyp of n lyric cavity and/or nasal sinus 368895388 J33.1 Moderate p ersistent asthma 560411894 J45.40 Disorder o f respiratory system 38915728 J70.8 Health Concerns Section Related Observation LastModified by Organization Detai ls LastModified Time None Recorded Concern Status LastModified by Organization Details LastModified Time None Recorded Advance Directives Directive None Recorded Payers Insurance Date Sequence Insurance Name Policy Number Policy Crawford Covered Member ID Crawford Member ID Guarantor Name 11/13/2024 2 [place] [facility] Gabriel Krishnamurthy [id number] Gabriel Reilly [place] 05/11/2025 2 [place] [facility] Gabriel Krishnamurthy [id number] Gabriel Krishnamurthy 05/11/2025 1 MED[place] B-[place] [facility] Gabriel [place]que [id number] Gabriel Reilly [place] 12/10/2024 2 [place] [facility] Gabriel Krishnamurthy [id number] Gabriel Krishnamurthy Notes Date Note Type Note Provider Name and Address Organization Details Recorded Time 11/13/2024 text/html AERD with polyps . Surgery schedule spring 2022 but cx due to illness Patient with history of aspirin exacerbated respiratory disease. They are presently using topical budesonide irrigations. They are taking fexofenadine and Breo < >They have not previously undergone endoscopic sinus surgery . < >Presently are not experiencing asthma symptoms < > Their sense of smell is normal. < > They are presently taking biologic therapy Maryixshaila had previously tried Nucala but seems to do better on Dupixent MICHAEL KLEIN MD [address] [place] [address], [place], [address], [facility] - [facility] 11/13/2024 15:05:14
--- OUTSIDE RECORDS SUMMARY | 2025-06-02 15:41 | XMS_ITS | Patient Health Record ---
[facility] Address [address] [place] [address] Care Team Providers Care [employer] Teacher Name Role Phone Pan Stevens MD Primary Care Provider Yohannes Pereira Unavailable [phone] Allergies Allergen (clinical drug ingredient) Drug/Non Drug Allergy documented on EMR Reaction Allergy Type Onset Date Status ibuprofen Advil Unknown Drug Allergy Active Aleve Unknown Drug Allergy Active Motrin Unknown Drug Allergy Active Non-steroidal anti-inflammatory agent (FN) NSAIDs Unknown Drug Allergy Active Shellfish (FN) Shellfish-derived Products Unknown Drug Allergy Active Reason For Referral No Information Medications Medication SIG (Take, Route, Fr equency, Duration) Notes Start Date End Date Status Breo Ellipta Active Ciclopirox 0.77 % 1 application to aff ected area Externally Twice a day to effected nails; Duration: 30 days 11/27/2023 Active clonazePAM Active Pravastatin Sodium A ctive Dupixent 200 MG/1.14ML as directed Subcutaneous Active Fluticasone Furoate Active Social History Tobacco Use: Social History Observation Description Date Details (start date - stop date) Never Smoker NA - NA Tobacco Use/Smoking Question Answer Notes Are you a: nonsmoker Alcohol Screen Question Answer Notes Did you have a drink containing alcohol in the p ast year? No Points 0 Interpretation Negative Tobacco use other than smoking: Question Answer Notes Are you an other tobacco user? No Plan Of Treatment No Information Insurance Providers Payer Name Payer Address Payer Phone Subscriber Number Group Number Insured Name Patient Relationship to Insured Coverage Start Date Coverage End Date Medicare [employer] [address] [place] [address] [id number] Gabriel Zelaya Self - patient is the insured Medical (General) History Medical History History ICD Code asthma covid-19 Chicken pox Surgical History Surgery Date(Month/Year)
[2025-06-02 17:21] LABS: MANUAL DIFF FLAG NO
[2025-06-02 17:46] LABS: Hematocrit 43.1 % (42.0-52.0); Hemoglobin 15.5 g/dl (14.0-18.0); Imm Gran Abs Auto 0.02 X10*3/uL (0.00-0.03); Imm Gran Pct Auto 0.4 % (0.0-0.4); Lymphocytes Absolute Auto 1.4 X10*3/uL (1.2-4.9); Mean Corpuscular HGB Conc 36.0 g/dl (31.0-36.0); Mean Corpuscular Hemoglobin 31.3 pg (27.0-33.0); Mean Corpuscular Volume 86.9 fL (80.0-98.0); NRBC Abs Auto 0.000 X10*3/uL (0.0-0.012); NRBC Pct Auto 0.0 /100WBC (0.0-0.2); Platelet Count 172 X10*3/uL (160-400); Red Blood Count 4.96 X10*6/uL (4.60-5.80); White Blood Count 5.1 X10*3/uL (4.8-10.8)
[2025-06-02 17:50] LABS: Alanine Aminotransferase 28 U/L (0-40); Albumin Level 4.3 g/dL (3.5-5.0); Alkaline Phosphatase 70 U/L (39-117); Anion Gap 12 (12-20); Aspartate Amino Transferase 28 U/L (5-37); Blood Urea Nitrogen 18 mg/dL (9-16); Calcium 8.7 mg/dL (8.4-10.2); Carbon Dioxide 25 mmol/L (22-29); Chloride 107 mmol/L (96-108); Cholesterol 167 mg/dL (<200); Estimated Glomerular Filt Rate > 60; HDL Cholesterol 39 mg/dL (>40); Potassium 3.5 mmol/L (3.3-5.1); Sodium 140 mmol/L (135-145); Total Protein 6.8 g/dL (6.5-8.0); Triglycerides 60 mg/dL (<150)
[2025-06-02 18:50] LABS: PSA,Total (Free>4and<10) 5.98 ng/mL (0.00-4.00)
[2025-06-03 03:39] LABS: ~HepC Num1 0.15 S/CO (0.00-0.79); ~Hepatitis C Antibody Nonreactive (Nonreactive)
[2025-06-04 12:03] LABS: Free Prostate Spec Ag 0.5 ng/mL; Percent Free Prostate Spec Ag 10 % (calc) (>25)
== END 2025-06-02 14:58 | disposition home or self-care (01) ==
LOC: HO.CHCLDS 14:57
PROVIDERS: Visit Provider Internal Medicine
DX: Z12.5 Encounter for screening for malignant neoplasm of prostate (principal); K21.9 Gastro-esophageal reflux disease without esophagitis; E66.811 Obesity, class 1; E66.09 Other obesity due to excess calories; Z68.30 Body mass index [BMI] 30.0-30.9, adult
CPT/HCPCS: 36415; 80053; 80061; 84153; 84154; 85025; 86803

== ENCOUNTER 2025-08-07 14:24 | Outpatient (AMB) | payer MEDICARE, MEDICAID, SELFPAY ==
--- OUTSIDE RECORDS SUMMARY | 2024-03-11 10:00 | XMS_ITS ---
Author Organization [facility] [place] Address [address] [facility] [place] [address] Care Team Providers Care Dental Insurance Biller Name Role Phone Pan Stevens MD Primary Care Provider Unavailab Yohannes Gaines Unavailable [phone] REASON FOR VISIT Painful nail(s) aggrevated by shoes and causing difficulty standing/walking. Medications Medication SIG (Take, Route, Fr equency, Duration) Notes Start Date End Date Status Ciclopirox 0.77 % 1 application to aff ected area Externally Twice a day to effected nails; Duration: 30 days 11/27/2023 Active clonazePAM Active Pravastatin Sodium A ctive Dupixent 200 MG/1.14ML as directed Subcutaneous Active Fluticasone Furoate Active Breo Ellipta Active Encounters Encounter Location Date Provider Diagnosis [facility] [address] [address] 03/11/2024 Yohannes Nance Tinea unguium B35.1 ; Pain in right toe(s) M79.674 and Pain in left toe(s) M79.675 Assessments Encounter Date Diagnosis (ICD Code) Assessment Notes Treatment Notes Treatment Clinical Notes Section Notes 03/11/2024 Tinea unguium (ICD-10 - B35.1) 03/11/2024 Pain in right toe(s) (ICD-10 - M79.674) 03/11/2024 Pain in left toe(s) (ICD-10 - M79.675) Plan Of Treatment No Information Procedure Notes * Category Sub-Category Detail Notes Debride Nail 6-10 Nail debridement Nail debridem ent performed extensively to reduce/remove overall nail length and girth, subungual debris, and necrotic tissue, by manual and electrical means with use of a nail nipper and/or dremel, to more viable healthy nail plate or bed tissue 6-10. Silver nitrate used for any petechial bleeding as necessary. Patient chooses, no pharmaceutical tx (64014) Progress Notes * Gabriel FERNANDEZDOB: [birth year] (60 yo M)Acc No.[id number]:03/11/2024 Progress Note Patient: Gabriel ESCALANTE Provider: Austen Nance DPM :1965 A ge:58 Y S ex:Male Date:03/11/2024 Address:[address] [place] [id number] Pcp:Pan Stevens MD Subjective: * Chief Complaints: * 1 . Painful nail(s) aggrevated by shoes and causing difficulty standing/walking.. * HPI: P ainful Nails: Pt States Last PCP Visit: D ate: 1 12/29/2022 S kin problems: Nature: d iscolored, tender. Location: B /L , Toe(s). Duration: s everal years. Onset/Cause: g enetic--father. Course: w orse. Aggravated by: a ny pressure, standing, walking, shoegear.? Treatments: u v light--he bought from [employer]. Severity/Quality: s evere. * Medical History: * Medications: T aking Dupixent 200 MG/1.14ML Solution Prefilled Syringe as directed Subcutaneous , Taking Fluticasone Furoate , Taking clonazePAM , Taking Pravastatin Sodium , Taking Breo Ellipta , Taking Ciclopirox 0.77 % Gel 1 application to affected area Externally Twice a day to effected nails Objective: * Vitals: * Examination: N ails: NAILS are: e longated,overgrown,dystrophic,greater than 3mm thick,discolored and friable with crumbly malodorous subungual debris, with pain on palpation. Assessment: * Assessment: 1. T inea unguium - B35.1 (Primary) 2 . P ain in right toe(s) - M79.674? 3. P ain in left toe(s) - M79.675 Plan: * Treatment: * Procedures: D ebride Nail 6-10: Nail debridement N ail debridement performed extensively to reduce/remove overall nail length and girth, subungual debris, and necrotic tissue, by manual and electrical means with use of a nail nipper and/or dremel, to more viable healthy nail plate or bed tissue 6-10. Silver nitrate used for any petechial bleeding as necessary. Patient chooses, no pharmaceutical tx ([id number]). * Procedure Codes: 1 1721 DEBRIDE NAIL, 6 OR MORE, Modifiers: XS * Images: * The named appointment provid er may or may not be the originator of this progress note, and it is not deemed complete until electronically signed by the appointment provider. Sign off status: Pending * Provider: Austen Nance DPM Date: 0 03/11/2024 Generated for Michelle chaney/González/eTsukhjinderitting on: 0 08/07/2025 05:17 PM EDT History and Physical Notes * HPI (History of Present Illness) Category Sub-Category Detail Notes Category Not es Painful Nails Pt States Last PCP Visit: Date:: 10/28/2023 Skin problems Nature: discolored, tender Location: B/L , Toe(s) Duration: several years Onset/Cause: genetic--father Course: worse Aggravated by: any pressure, standi ng, walking, shoegear Treatments: uv light--he bought from [employer] Severity/Quality: severe Examination Category Sub-Category Detail Notes Category Not es Nails NAILS are: elongated,overgr own,dystrophic,greater than 3mm thick,discolored and friable with crumbly malodorous subungual debris, with pain on palpation
--- NOTE | 2025-08-07 14:26 | MHC.OFFVIS ---
Intake Visit Reasons: Elevated PSA Intake Note: patient presents today for: new pt elevated PSA urology medications: none blood thinners: none labs done 06/02/25: t-psa 5.98 Photographer Aerial Required: No Accompanied by: Self / Same As Patient Allergies shellfish derived Allergy (Severe, Verified 08/07/25 14:27) ANAPHYLAXIS ibuprofen Allergy (Intermediate, Verified 08/07/25 14:27) Shortness of Breath mold (MOLD) Allergy (Intermediate, Verified 08/07/25 14:27) ASTHMA EXACERBATION NSAIDS (Non-Steroidal Anti-Inflamma Allergy (Verified 08/07/25 14:27) Anaphylaxis DUST Allergy (Intermediate, Uncoded 08/07/25 14:27) ASTHMA EXACERBATION HPI Comments Details: Gabriel is a very pleasant male. He is a patient of . He is seen for the following urologic conditions - elevated PSA No history of prostate symptoms No family history of prostate cancer Boggy prostate on exam consistent with prostatitis Treat with antibiotics and anti-inflammatory Review of Systems Const Denies chills and Denies fever(s) Card Reports no additional complaints and Denies syncope Resp Denies cough GI Denies abdominal pain and Denies heartburn Reports as per HPI and Denies change in libido Neuro Denies syncope Psych Denies change in libido Endo Denies change in libido Physical Exam Const General: cooperative, healthy appearing, comfortable and no acute distress Orientation/consciousness: patient oriented x3 HEENT Face and sinus: Yes normal facial exam Mouth: moist mucous membranes Neck Neck: Yes normal visual inspection, Yes full ROM and Yes trachea midline Chest Chest palpation & inspection: normal inspection of the chest Resp Effort & Inspection: normal respiratory effort, able to speak in complete sentences and no respiratory distress GI Inspection: Yes normal to inspection Rectal Exam - Male: Yes normal sphincter tone and Yes prostate normal Male General Exam: Yes normal external exam Penis: normal penis and circumcised Meatus: meatus normal Scrotum: scrotum normal Testes: Testes normal Back/Spine/Pelvis Cervical Spine: normal cervical lordosis Thoracic/Lumbar Spine: thoracic and lumbar spine normal to inspection Skin General skin exam: no rashes or lesions noted Neuro General: patient oriented x3, gait normal, tone normal and moves all extremities Extrem General: Yes normal to inspection and Yes capillary refill normal Results AMB Urinalysis, Automated UA Leukoctes 0 Pradeep/uL Last Edit by [employer] on 08/07/25 14:41 UA Nitrite Last Edit by [employer] on 08/07/25 14:41 UA Urobilinogen 0.2 mg/dL Last Edit by [employer] on 08/07/25 14:41 UA Protein 0 mg/dL Last Edit by [employer] on 08/07/25 14:41 UA pH 6.0 Last Edit by [employer] on 08/07/25 14:41 UA Blood 0 Misha/uL Last Edit by [employer] on 08/07/25 14:41 UA Specific Talent 1.015 Last Edit by [employer] on 08/07/25 14:41 UA Ketone Last Edit by [employer] on 08/07/25 14:41 UA Bilirubin 0 mg/dL Last Edit by [employer] on 08/07/25 14:41 UA Glucose 0 mg/dL Last Edit [facility] on 08/07/25 14:41 Results Reviewed Results Reviewed: Laboratory Last Values Urine pH (Auto) 6.0 08/07/25 14:41 Specific Talent (Auto) 1.015 08/07/25 14:41 Urine Protein (Auto) 0 mg/dL 08/07/25 14:41 Glucose (UA)(Auto) 0 mg/dL 08/07/25 14:41 Urine Blood (Auto) 0 Misha/uL 08/07/25 14:41 Urine Bilirubin (Auto) 0 mg/dL 08/07/25 14:41 Urine Urobilinogen (Auto) 0.2 mg/dL 08/07/25 14:41 Leukocyte Esterase (Auto) 0 Pradeep/uL 08/07/25 14:41 Assessment & Plan Assessment & Plan (1) Prostatitis: Code(s): N41.9 - Inflammatory disease of prostate, unspecified Category: Medical Plan Treat for prostatitis Antibiotics and Celebrex as atypical anti-inflammatory Orders: Orders AMB Urinalysis Automated 08/07/25 Z13.9 - Encounter for screening, unspecified PSA,Total (Free>4and<10) 3 Months N41.9 - Inflammatory disease of prostate, unspecified Medications: New levofloxacin 500 mg PO DAILY 14 tabs 0RF 14 days N41.9 - Inflammatory disease of prostate, unspecified celecoxib 100 mg PO ONCE 30 caps 0RF 30 days N41.9 - Inflammatory disease of prostate, unspecified Patient Instructions: This note is constructed using voice recognition software. While every effort has been made to ensure accuracy injury/safety hazard assessment errors may have been included. Imaging studies, laboratory and physical exam results were discussed and reviewed in detail. No major barriers to patient understanding were identified. An opportunity to ask questions regarding the treatment plan was provided. All questions were answered. The patient expressed understanding and agreement with the above treatment plan. The patient is aware they should contact our office by phone for worsening of their current condition or the appearance of new urologic symptoms. Compliance is encouraged with any medications and followup testing that is ordered. It is a privilege to participate in the urologic care of your patient. If you have any questions or concerns regarding treatment for the above conditions, or other urologic issues, please do not hesitate to contact me. The office telephone contact is [phone]. Sincerely, Dr Adonis Montilla MD, [facility] - Urology Compassionate Specialist Care for the Genitourinary System Coding Level of Care Code New Pt Level 4 (13972) Diagnoses Prostatitis N41.9
--- OUTSIDE RECORDS SUMMARY | 2025-08-07 17:17 | XMS_ITS | Clinical Summary ---
Author Organization [employer] Address [address] [facility] [address] [place] [address] Care Team Providers Care Digital Solutions Architect Name Role Phone Tobias Penn MD Primary Care Prov ider Allergies Active Allergy Reactions Criticality Noted Date Comments Nsaids Anaphylaxis High 02/26/2025 Medications * This document contains information received from the source organization and may not represent a complete record from that organization. Omeprazole 20 MG tablet delayed-releas e Take 1 tablet (20 mg) by mouth Once per day. 90 tablet 05/11/20 25 Active Fluticasone Furoate-Vilant mauro (Breo Ellipta) 200-25 MCG/ACT aerosol powder Inhale 1 puff Once per day. 60 each 2 05/11/20 25 Active clonazePAM (KlonoPIN) 0.5 MG tablet Take 1 table on morning, one tablet on afternoon and 2 tablets at night 120 tablet 05/11/20 25 Active EPINEPHrine (Epipen) 0.3 MG/0.3ML injection syringe Inject 0.3 mL (0.3 mg) as directed 1 (one) time for 1 dose. 0.3 mL 05/11/20 25 Active fluticasone (Flonase) 50 MCG/ACT nasal spray Administer 1 spray into each nostril Once per day. 16 g 3 05/11/20 25 Active PARoxetine (Paxil) 20 MG tablet TAKE 1 TABLET(20 MG) BY MOUTH IN THE MORNING 90 tablet 08/07/20 25 Active PARoxetine (Paxil) 20 MG tablet Take 1 tablet (20 mg) by mouth in the morning. 90 tablet 05/11/20 25 025 Discontinued Active Problems Problem Noted Date Diagnosed Date Impacted cerumen of right ear 06/01/2025 Assessment & Plan (06/01/2025 3:19 PM EDT): Will send debrox, schedule a nurse visit in 1 week for ear flush if neeeded Urinary frequency 06/01/2025 Assessment & Plan (06/01/2025 3:28 PM EDT): Urine test was negative, told to remain well hydrated, Gastroesophageal reflux disease without esophagi tis 05/11/2025 Assessment & Plan (05/11/2025 9:00 AM EDT): Renew omeprazole, lifestyle modifications reinforced, call back if worsening Moderate persistent asthma without complication 05/11/2025 Assessment & Plan (06/01/2025 3:18 PM EDT): On breo ellipta, seen by pulmonology, no changes will be made Assessment & Plan (05/11/2025 9:05 AM EDT): Renew breo ellipta, and will send rescue inhaler, call back if using it more than 2 times a week, Current mild episode of carlos r depressive disorder without prior episode 03/03/2025 Encounter for medical examination to establish c are 02/26/2025 Assessment & Plan (02/26/2025 3:03 PM EDT): Last pcp visit 1 month ago, pcp is retiring ER: 02/20 anxiety [facility] Hospitalization: asthma [place] 2022, anxiety 2012 Pmhx: anxiety, asthma Pshx:- All: Nsaids, shellfish Meds: paroxetine 20mg every day, clonazepam 1mg at night, dupexant, breoellipta, omeprazole, Screening for colon cancer 02/26/2025 Assessment & Plan (06/01/2025 3:17 PM EDT): Will refer to Assessment & Plan (02/26/2025 4:47 PM EDT): Will refer for a screening colonoscopy Anxiety 02/26/2025 Assessment & Plan (06/01/2025 3:19 PM EDT): On paoxetine and clonazepam, will refer to for evaluation, no suicidal/homicidal ideas Assessment & Plan (05/11/2025 8:59 AM EDT): Will renew paroxetine and clonazepam, pending psych follow up Assessment & Plan (02/26/2025 4:48 PM EDT): Will refer to therapist, no suicidal/homicidal ideas Encounters * This document contains information received from the source organization and may not represent a complete record from that organization. Date Type Department Care Team Description 08/05/2025 Refill [facility] MED & PEDS [address] [place] [address] Tobias Penn MD 07/07/2025 Refill [facility] [address] [place] [address] Tobias Penn MD 06/16/2025 Telephone [facility] MED[facility]INE [address] [place] [address] Tobias Penn MD Durable Medical Equipment 06/09/2025 Telephone [facility] [address] [place] [address] Tobias Penn MD No Show 06/08/2025 Travel 06/08/2025 Results Follow-Up [facility] [address] [place] [address] Tobias Penn MD PSA, Free and Total 06/05/2025 Telephone [facility] [address] [place] [address] Tobias Penn MD Results 06/02/2025 Telephone [facility] [address] [place] [address] Tobias Penn MD Appointment Request 06/01/2025 2:15 PM EDT Office Visit [facility] [address] [place] [address] Tobias Penn MD Gastroesophageal reflux disease without esophagitis (Primary Dx); Class 1 obesity due to excess calories without serious comorbidity with body mass index (BMI) of 30.0 to 30.9 in adult; Urinary frequency; Prostate cancer screening; Screening for colon cancer; Anxiety; Moderate persistent asthma without complication; Impacted cerumen of right ear 06/01/2025 Travel 05/22/2025 Patient Outreach [address] [address] Tobias Penn MD Pre-visit Planning ([facility] screening completed on 02/26/25 ) 05/12/[address] [address] Tobias Penn MD Nurse Triage 05/12/[address] [address] Tobias Penn MD Nurse Triage 05/11/2025 8:30 AM EDT Telemedicine [facility] [address] [place] [address] Tobias Penn MD Anxiety (Primary Dx); Gastroesophageal reflux disease without esophagitis; Moderate persistent asthma without complication 05/11/2025 Orders Only [facility] [address] [place] [address] Tobias Penn MD 05/08/2025 Telephone [facility] [address] [place] [address] Tobias Penn MD Chart Prep from Last 3 Months Immunizations Immunization Administration Dates Next Due Influenza injectable quadriv alent IIV4 with preservative 08/03/2021 Influenza injectable quadriv alent preservative free 11/27/2022,09/21/2020,12/26/2019 Influenza, Injectable, MDCK, preservative free 01/25/2016 Td (adult), 5 Lf tetanus tox oid, preservative free, adsorbed 06/21/2012 Family History Medical History Relation Name Comments Asthma Brother Asthma Father Hypertension Mother Cancer Neg Hx Relation Name Status Comments Brother Father Mother Social History Tobacco Use Types Packs/Day Years Used Date Smoking Tobacco: Never Passive Smoke Exposure: Never Smokeless Tobacco: Never Tobacco Cessation:Counseling Given: Not Answered Alcohol Use Standard Drinks/Week Comments Never 0 (1 standard drink = 0.6 oz pur e alcohol) Depression Answer Date Recorded Patient Health Questionnaire-9 Score 5 06/15/2025 Patient Health Questionnaire-9 Score 5 06/15/2025 Last PHQ-9: Questionnaire Data Not on file 0 06/15/2025 Housing Stability Answer Date Recorded What is your housing situation today? I have candelaria seymour 02/26/[address] you li ve. Do you have problems with any of the following? None of the above 02/26/2025 Food Insecurity Answer Date Recorded Within the past 12 months, y ou worried that your food would run out before you got money to buy more: Never True 02/26/2025 Within the past 12 months,th e food you bought just didn't last and you didn't have enough money to get more: Never True 01/2025 Transportation Answer Date Recorded In the past 12 months, has l ack of transportation kept you from medical appts, meetings, work or from getting things needed for daily living? No 02/26/2025 Utilities Answer Date Recorded In the past 12 months, has t he electric, gas, oil or water company threatened to shut off services in your home? No 02/26/2025 Depression Answer Date Recorded Patient Health Questionnaire-2 Score 0 06/15/2025 Internet Access Answer Date Recorded Internet Access Q1 Yes 02/26/2025 Internet Access Q2 Not on file 02/26/2025 Sex and Gender Information Value Date Recorded Sex Assigned at Male 09/25/2022 10:31 AM EDT Legal Sex Male 10:31 AM EDT Gender Identity Male 09/25/2022 10:31 AM EDT Sexual Orientation Straight 09/25/2022 10 :31 AM EDT Last Filed Vital Signs Vital Sign Reading Time Taken Comments Blood Pressure 124/88 06/01/2025 2:22 PM EDT Pulse 76 06/01/2025 2:22 PM EDT Temperature 36.9 C (98.4 F) 06/01/2025 2:22 PM EDT Respiratory Rate 20 06/01/2025 2:22 PM EDT Oxygen Saturation - - Inhaled Oxygen Concentration - - Weight 96.2 kg (212 lb) 06/01/2025 2:22 PM EDT Height 179.7 cm (5' 10.75 ) 06/01/2025 2:22 PM E DT Body Mass Index 29.78 06/01/2025 2:22 PM EDT Plan of Treatment Upcoming Encounters Date Type Department Care Team ([facility] st Contact Info) Description 09/01/2025 8:45 AM EDT Telemedicine [facility] MED & PEDS [address] [place] [address] Tobias Penn MD [address] [place] [address] Health Maintenance Due Date Last Done Comments CT Colonography 1967 Colonoscopy 1967 Colorectal Cancer Screening 1967 FIT DNA/Cologuard 1967 FIT 1967 FOBT 1967 HIV Screening 1967 Sigmoidoscopy 1967 Hepatitis B Vaccines (1 of 3 - 19+ 3-dose series) 1986 Pneumococcal Vaccine: 50+ Years (1 of 2 - PCV) 1986 DTaP/Tdap/Td Vaccines (1 - Tdap) 06/22/2012 06/21/2012 Zoster Vaccines (1 of 2) 2017 COVID-19 Vaccine (3 - season) 2025 02/09/2021, 01/12/2021 Influenza Vaccine (#1) 2025 3, 08/03/2021, 09/21/2020, Additional history exists Alcohol/Substance Use Screening 02/26/2026 02/26/2025 SDOH Screening 02/26/2026 02/26/2025 Tobacco Screening 06/01/2026 06/01/2025 Disability Screening 06/08/2026 06/08/2025 Depression Screening 06/15/2026 06/15/2025, 06/15/20 25 Lipid Panel 06/02/2030 06/02/2025 RSV Patients and Patients Aged 60 years or older (1 - 1-dose 75+ series) 2042 Hepatitis C Screening Completed 06/02/2025 HIB Vaccines Aged Out No longer eligi ble based on patient's age to complete this topic HPV Vaccines Aged Out No longer eligi ble based on patient's age to complete this topic Hepatitis A Vaccines Aged Out No long er eligible based on patient's age to complete this topic IPV Vaccines Aged Out No longer eligi ble based on patient's age to complete this topic Meningococcal B Vaccine Aged Out No l onger eligible based on patient's age to complete this topic Meningococcal Vaccine Aged Out No bren makayla eligible based on patient's age to complete this topic RSV under 20 months Aged Out No longe r eligible based on patient's age to complete this topic Rotavirus Vaccines Aged Out No longer eligible based on patient's age to complete this topic Procedures Procedure Name Priority Date/Time Associated Diagnosis Comments PSA, FREE AND TOTAL Routine 06/02/2025 6 :50 PM EDT PSA, TOTAL WITH REFLEX TO PSA, FREE Routine 06/02/2025 2:58 PM EDT Prostate cancer screening HEPATITIS C AB W/REFL TO HCV RNA, QN, PCR Routine 06/02/2025 2:58 PM EDT Gastroesophageal reflux disease without esophagitis Class 1 obesity due to excess calories without serious comorbidity with body mass index (BMI) of 30.0 to 30.9 in adult LIPID PANEL, STANDARD Routine 06/02/2025 2:58 PM EDT Gastroesophageal reflux disease without esophagitis Class 1 obesity due to excess calories without serious comorbidity with body mass index (BMI) of 30.0 to 30.9 in adult COMPREHENSIVE METABOLIC PANEL Routine 06/02/2025 2:58 PM EDT Gastroesophageal reflux disease without esophagitis Class 1 obesity due to excess calories without serious comorbidity with body mass index (BMI) of 30.0 to 30.9 in adult CBC WITH AUTO DIFFERENTIAL Routine 06/02/2025 2:58 PM EDT Gastroesophageal reflux disease without esophagitis Class 1 obesity due to excess calories without serious comorbidity with body mass index (BMI) of 30.0 to 30.9 in adult POCT URINALYSIS DIPSTICK Routine 06/01/2025 3:24 PM EDT Urinary frequency from Last 3 Months Results * (ABNORMAL) PSA, Free and Total (06/02/2025 6:50 PM EDT) PSA, Total 5.2(A) < OR = 4.0 ng/mL [facility] PSA % Free 10(A) >25 % (calc) [facility] Comment: PSA(ng/mL) Free PSA(%) Estimated(x) Probability of Cancer(as%)0-2.5 (*) Approx. 12.6-4.0(1) 0-27(2) 24(3)4.1-10(4) 0-10 56 11-15 28 16-20 20 21-25 16 >or =26 8>10(+) N/A >50References:(1)Oscar et al.:Urology 60: 469-474 (2001) (2)Oscar et al.:J.Urol 168: 922-925 (2001) Free PSA(%) Sensitivity(%) Specificity(%) < or = 25 85 19 < or = 30 93 9 (3)Catalona et al.:MATTEO 277: 5111-4125 (1996) (4)Catalona et al.:MATTEO 279: 4388-5803 (1997)(x)These estimates vary with age, ethnicity, family history and ELKIN results.(*)The diagnostic usefulness of % Free PSA has not been established in patients with total PSA below 2.6 ng/mL(+)In men with PSA above 10 ng/mL, prostate cancer risk is determined by total PSA alone.The Total PSA value from this assay system isstandardized against the equimolar PSA standard.The test result will be approximately 20% higherwhen compared to the WHO-standardized Total PSA(Siemens assay). Comparison of serial PSA resultsshould be interpreted with this fact in mind.PSA was performed using the Carrington CoulterImmunoassay method. Values obtained from differentassay methods cannot be used interchangeably. PSAlevels, regardless of value, should not be interpretedas absolute evidence of the presence or absence ofdisease.THIS TEST WAS PERFORMED AT:[facility] [place] [phone] GAVLEZ MD PSA, Free 0.5 ng/mL [facility] 06/02/2025 6:50 PM EDT 06/02/2025 6:50 PM EDT Tobias Reilly MD LAB BLOOD ORDERABL ES Final Result Performing Organization Address [facility] Co de Phone Number [facility] [address] [place] [phone] * (ABNORMAL) PSA, Total With Reflex to PSA, Free (06/02/2025 2:58 PM EDT) PSA,Total (Free>4and<10) 5.98(H) 0.00 - 4.00 ng/mL [facility] Comment:Test was verified by repeat analysis.PSA methodology: Forman Alinity i ChemiluminescentMicroparticle Immunoassay (CMIA) 06/02/2025 2:58 PM EDT 06/02/2025 5:13 PM EDT us Tobias Reilly MD LAB BLOOD ORDERABL ES Final Result Performing Organization Address [facility] Co de Phone Number [facility] [address] [place] [phone] * (ABNORMAL) CBC auto differential (06/02/2025 2:58 PM EDT) White Blood Count 5.1 4.8 - 10.8 X10*3/uL [facility] Red Blood Count 4.96 4.60 - 5.80 X10*6/uL [facility] Hemoglobin 15.5 14.0 - 18.0 g/dl [facility] Hematocrit 43.1 42.0 - 52.0 % [facility] Mean Corpuscular Volume 86.9 80.0 - 98.0 fL [facility] Mean Corpuscular Hemoglobin 31.3 27.0 - 33.0 pg [facility] Mean Corpuscular HGB Conc 36.0 31.0 - 36.0 g/dl [facility] Red Cell Distribution Width 12.4 11.0 - 16.0 % [facility] Platelet Count 172 160 - 400 X10*3/uL [facility] Mean Platelet Volume 11.0 9.4 - 12.4 fL [facility] Neutrophils Percent Auto 51.4 45 - 73 % [facility] Imm Gran Pct Auto 0.4 0.0 - 0.4 % [facility] Lymphocytes Percent Auto 26.5 20 - 40 % [facility] Monocytes Percent Auto 8.0 2 - 11 % [facility] Eosinophils Percent Auto 12.9(H) 0 - 4 % [facility] Basophils Percent Auto 0.8 0 - 2 % [facility] NRBC Pct Auto 0.0 0.0 - 0.2 /100WBC [facility] Neutrophils Absolute Auto 2.6 2.0 - 8.3 x10*3/uL [facility] Imm Gran Abs Auto 0.02 0.00 - 0.03 X10*3/uL [facility] Lymphocytes Absolute Auto 1.4 1.2 - 4.9 X10*3/uL [facility] Monocytes Absolute Auto 0.4 0.1 - 1.2 X10*3/uL [facility] Eosinophils Absolute Auto 0.7(H) 0.0 - 0.4 X10*3/uL [facility] Basophils Absolute Auto 0.0 0.0 - 0.2 X10*3/uL [facility] NRBC Abs Auto 0.000 0.0 - 0.012 X10*3/uL [facility] Blood Venous blood specimen / Unknown 06/02/2025 2:58 PM EDT 06/02/2025 5:13 PM EDT us Tobias Reilly MD LAB BLOOD ORDERABL ES Final Result [facility] [address] [place] [phone] * Hepatitis C Antibody with Reflex to HCV, RNA, Quantitative, Real-Time PCR (06/02/2025 2:58 PM EDT) Hepatitis C Antibody Nonreactive Nonreactive [facility] Comment:Antibodies to HCV no t detected; does not exclude early acuteHCV infection. Blood Venous blood specimen / Unknown 06/02/2025 2:58 PM EDT 06/02/2025 5:13 PM EDT Tobias Reilly MD LAB BLOOD ORDERABL ES Final Result Performing Organization Address [facility] de Phone Number [facility] [address] [place] [phone] * (ABNORMAL) Lipid Panel, Standard (06/02/2025 2:58 PM EDT) Triglycerides 60 <150 mg/dL [facility] Comment:Desirable Triglyceri de: less than 150 mg/dLBorderline High Triglyceride 150-199 mg/dLHigh Triglyceride: 200-499 mg/dLVery High Triglyceride: greater than or equal to 5OO mg/dL Cholesterol 167 <200 mg/dL [facility] Comment:Desirable Cholestero l: less than 200 mg/dLBorderline High Cholesterol: 200-239 mg/dLHigh Cholesterol: greater than 239 mg/dL LDL Cholesterol Calculated 116(H) <100 mg/dL [facility] Comment:Desirable LDL: less than 100 mg/dLNear Optimal/Above Optimal LDL: 110- 129 mg/dLBorderline High LDL: 130-159 mg/dLHigh LDL: 160-189 mg/dLVery High LDL: greater than or equal to 190 mg/dL HDL Cholesterol 39(L) >40 mg/dL [facility] Comment:Desirable HDL: great er than 40 mg/dL Note: This HDL assay may give artificially low results in patients with liver disease. Blood Venous blood specimen / Unknown 06/02/2025 2:58 PM EDT 06/02/2025 5:13 PM EDT Tobias Reilly MD LAB BLOOD ORDERABL ES Final Result Performing Organization Address City/[facility]/ZIP Co de Phone Number [facility] [address] [place] [phone] * (ABNORMAL) Comprehensive Metabolic Panel (06/02/2025 2:58 PM EDT) Sodium 140 135 - 145 mmol/L [facility] Potassium 3.5 3.3 - 5.1 mmol/L [facility] Chloride 107 96 - 108 mmol/L [facility] Carbon Dioxide 25 22 - 29 mmol/L [facility] Anion Gap 12 12 - 20 [facility] Urea Nitrogen (BUN) 18(H) 9 - 16 mg/dL [facility] Creatinine, Serum 0.93 0.5 - 1.4 mg/dL [facility] Estimated Glomerular Filt Rate >60 [facility] Comment:Chronic Kidney Disea se: Estimated GFR < 60 mL/min/1.96s5Jghedu Kidney Disease: Estimated GFR < 15 mL/min/1.73m2 Glucose 106 60 - 115 mg/dL [facility] Calcium 8.7 8.4 - 10.2 mg/dL [facility] Bilirubin, Total 0.9 0.0 - 1.0 mg/dL [facility] Aspartate Amino Transferase 28 5 - 37 U/L [facility] Alanine Aminotransferase 28 0 - 40 U/L [facility] Total Protein 6.8 6.5 - 8.0 g/dL [facility] Albumin Level 4.3 3.5 - 5.0 g/dL [facility] Alkaline Phosphatase 70 39 - 117 U/L [facility] Blood Venous blood specimen / Unknown 06/02/2025 2:58 PM EDT 06/02/2025 5:13 PM EDT us Tobias Reilly MD LAB BLOOD ORDERABL ES Final Result [facility] [address] [place] [phone] * POCT Urinalysis (06/01/2025 3:24 PM EDT) Color, UA Yellow Clarity, UA Clear Glucose, UA Negative Bilirubin, UA Negative Ketones, UA Negative Spec Grav, UA 1.020 Blood, UA Negative Negative, None Detected pH, UA 6.0 Protein, UA Negative Urobilinogen, UA 0.2 Leukocytes, UA Negative Negative, Rare, Trace Nitrite, UA Negative Negative, None Detected Appearance, UA clear Urine 06/01/2025 3:24 PM EDT [facility] Rahul Reilly MD POINT OF CARE TEST ENTER/EDIT ORDERABLES Final Result from Last 3 Months Insurance [facility] STANDARD MEDICARE Care Teams Digital Solutions Architect Relationship Specialty Start Date End Date KayTobias Marcus MD [address] [place] [address] PCP - General Internal Medicine 02/26/25
--- OUTSIDE RECORDS SUMMARY | 2025-08-07 17:17 | XMS_ITS | Encounter Summary ---
Author Organization [employer] Address [address] [place] [address] Care Team Providers Care Hair Spinning Machine Operator Name Role Phone Tobias Penn MD Primary Care Prov ider Reason for Visit * Reason Comments Med Refill Encounter Details Date Type Department Care Team (Late st Contact Info) Description 08/05/2025 Refill [facility] [address] [place], [place] [phone] Tobias Penn MD [address] [place] [address] Social History Tobacco Use Types Packs/Day Years Used Date Smoking Tobacco: Never Passive Smoke Exposure: Never Smokeless Tobacco: Never Alcohol Use Standard Drinks/Week Comments Never 0 [...] Orientation Straight 09/25/2022 10 :31 AM EDT documented as of this encounter Plan of Treatment Upcoming Encounters Date Type Department Care Team ([facility] st Contact Info) Description 09/01/2025 8:45 AM EDT Telemedicine [facility] MED & PED[facility] [address] [place] [address] Tobias Penn MD [address] [place] [address] documented as of this encounter Visit Diagnoses Not on filedocumented in this encounter Additional Health Concerns Assessment Noted Time PHQ-9 Depression Total Score: 5 06/15/20 25 1:37 PM EDT documented as of this encounter Care Teams Hair Spinning Machine Operator Relationship Specialty Start Date End Date Tobias Penn MD [address] [place] [address] PCP - General Internal Medicine 02/26/25 documented as of this encounter
--- OUTSIDE RECORDS SUMMARY | 2025-08-07 17:17 | XMS_ITS | Encounter Summary ---
Author Organization [employer] Address [address] [facility] [address] [place] [address] Care Team Providers Care Electronic Commerce Specialist Name Role Phone Tobias Penn MD Primary Care Prov ider Reason for Visit * Reason Onset Date Comments Medication Question 04/13/2025 Encounter Details Date Type Department Care Team (Late st Contact Info) Description 04/13/2025 Telephone [facility] [address] [place] [address] Tobias Penn MD [address] [place], [place] [phone] Medication Question Social History Tobacco Use Types Packs/Day Years Used Date Smoking Tobacco: Never Smokeless Tobacco: Never Alcohol Use Standard Drinks/Week Comments Never 0 (1 standard drink = 0.6 oz pur e alcohol) Depression Answer Date Recorded Patient Health Questionnaire-9 Score 8 03/03/2025 Patient Health Questionnaire-9 Score 8 03/03/2025 Last PHQ-9: Questionnaire Data Not on file 0 03/03/2025 Housing Stability Answer Date Recorded What is [...] Answer Date Recorded Patient Health Questionnaire-2 Score 1 03/03/2025 Internet Access Answer Date Recorded Internet Access Q1 Yes 02/26/2025 Internet Access Q2 Not on file 02/26/2025 Sex and Gender Information Value Date Recorded Sex Assigned at Male 09/25/2022 10:31 AM EDT Legal Sex Male 10:31 AM EDT Gender Identity Male 09/25/2022 10:31 AM EDT Sexual Orientation Straight 09/25/2022 10 :31 AM EDT documented as of this encounter Miscellaneous Notes * Telephone Encounter - Wing Michael RN - 04/15/2025 9:59 AM EDT Tc to pt requesting refill for Breo Ellipta, paroxitine, and clonozapam. Ellipta dose was 200/25 mcg one puff daily. All the other medication dosages are noted in provider's note. All medications were ordered by previous provider Dr. Rogerio Ward whose office is sending over the office notes. Relayed to pt would send request to pt. Call disconnected, attempted to recall went to voice mail. Left message to pt to call back if there were further questions. * Telephone Encounter - Zoltan Medrano - 04/13/2025 3:32 PM EDT Tc from pt requesting refill for Breo Ellipta and Paroxetine. Medication are not on pt's med list and pt is requesting call back. Please contact pt at [phone]. documented in this encounter Plan of Treatment Upcoming Encounters Date Type Department Care Team ([facility] st Contact Info) Description 09/01/2025 8:45 AM EDT Telemedicine [facility]S [address] [place] [address] Tobias Penn MD [address] [place], [place] [phone] documented as of this encounter Visit Diagnoses Not on filedocumented in this encounter Additional Health Concerns Assessment Noted Time PHQ-9 Depression Total Score: 8 03/03/20 9:29 AM EDT documented as of this encounter Care Teams Electronic Commerce Specialist Relationship Specialty Start Date End Date Tobias Penn MD [address] [place] [phone] PCP - General Internal Medicine 02/26/25 documented as of this encounter
--- OUTSIDE RECORDS SUMMARY | 2025-08-07 17:17 | XMS_ITS | Encounter Summary ---
Author Organization [employer] Address [address] [facility] [place] [address] Care Team Providers Care Weed Eradicator Name Role Phone Tobias Penn MD Primary Care Prov ider Reason for Visit * Reason Comments Med Refill Encounter Details Date Type Department Care Team (Late st Contact Info) Description 07/07/2025 Refill [facility] [address] [place], [place] [phone] Tobias Penn MD [address] [place] [address] Social History Tobacco Use Types Packs/Day Years [...] Upcoming Encounters Date Type Department Care Team ([facility] st Contact Info) Description 09/01/2025 8:45 AM EDT Telemedicine [facility] MED & PEDS [address] [place] [address] Tobias Penn MD [address] [place] [address] documented as of this encounter Visit Diagnoses Not on filedocumented in this encounter Additional Health Concerns Assessment Noted Time PHQ-9 Depression Total Score: 5 06/15/20 25 1:37 PM EDT documented as of this encounter Care Teams Weed Eradicator Relationship Specialty Start Date End Date Tobias Penn MD [address] [place] [address] PCP - General Internal Medicine 02/26/25 documented as of this encounter
--- OUTSIDE RECORDS SUMMARY | 2025-08-07 17:18 | XMS_ITS | Patient Health Record ---
Author Organization [facility] Address [address] [facility] [place] [address] Care Team Providers Care Cardiothoracic Anesthesia Technician Name Role Phone Pan Stevens MD Primary Care Provider Yohannes Pereira Unavailable [phone] Allergies Allergen (clinical drug ingredient) Drug/Non Drug [...] Medicare [employer] [address] [place] [address] [phone] [id number] Gabriel Zelaya Self - patient is the insured Medical (General) History Medical History History ICD Code asthma covid-19 Chicken pox Surgical History Surgery Date(Month/Year)
== END 2025-08-07 15:14 | disposition home or self-care (01) ==
LOC: HO.HUSH 14:24
PROVIDERS: PCP Internal Medicine; Visit Provider Urology
DX: Z13.9 Encounter for screening, unspecified (principal)
CPT/HCPCS: 99204

== ENCOUNTER → 2025-08-07 14:24 | Outpatient (BNVA) | payer MEDICARE, MEDICAID, SELFPAY | PROVIDERS: PCP Internal Medicine; Visit Provider Urology | DX: N41.9 Inflammatory disease of prostate, unspecified (principal); Z13.9 Encounter for screening, unspecified | CPT/HCPCS: 81003; 99202 ==

== ENCOUNTER 2025-10-28 13:28 | Outpatient (REF) | payer MEDICARE, MEDICAID, SELFPAY ==
[2025-10-28 15:31] LABS: PSA,Total (Free>4and<10) 2.76 ng/mL (0.00-4.00)
--- OUTSIDE RECORDS SUMMARY | 2025-10-28 16:02 | XMS_ITS | Encounter Summary ---
Author Organization [employer] Address [address] 7[address] [place] [address] Care Team Providers Care Art Manager Name Role Phone Tobias Penn MD Primary Care Prov ider Reason for Visit * Reason Onset Date Comments Medication Question 04/13/2025 Encounter Details Date Type Department Care Team (Late st Contact Info) Description 04/13/2025 Telephone [facility] [address] [place] [address] Tobias Penn MD [address] [place], [place] [phone] Medication Question Social History Tobacco Use Types [...] requesting call back. Please contact pt at [phone]. documented in this encounter Plan of Treatment Not on file documented as of this encounter Visit Diagnoses Not on filedocumented in this encounter Additional Health Concerns Assessment Noted Time PHQ-9 Depression Total Score: 8 03/03/20 25 9:29 AM EDT documented as of this encounter Care Teams Art Manager Relationship Specialty Start Date End Date Tobias Penn MD [address] [place] [phone] PCP - General Internal Medicine 02/26/25 documented as of this encounter
--- OUTSIDE RECORDS SUMMARY | 2025-10-28 16:02 | XMS_ITS | Encounter Summary ---
Author Organization [employer] Address [address] [facility] [address] [facility] [address] [place] [address] Care Team Providers Care Local Superintendent Name Role Phone Tobias Penn MD Primary Care Prov ider Reason for Visit * Reason Comments Med Refill Encounter Details Date Type Department Care Team (Late st Contact Info) Description 10/23/2025 Refill [facility] [address] [place], [place] [phone] Tobias Penn MD 505 [place] [address] Social History Tobacco Use Types Packs/Day Years [...] as of this encounter Plan of Treatment Not on file documented as of this encounter Visit Diagnoses Not on filedocumented in this encounter Additional Health Concerns Assessment Noted Time PHQ-9 Depression Total Score: 5 06/15/20 1:37 PM EDT documented as of this encounter Care Teams Local Superintendent Relationship Specialty Start Date End Date KayTobias Marcus MD [address] [place] [phone] PCP - General Internal Medicine 02/26/25 documented as of this encounter
--- OUTSIDE RECORDS SUMMARY | 2025-10-28 16:02 | XMS_ITS | Encounter Summary ---
Author Organization [employer] Address [address] [facility] [address] [place] [address] Care Team Providers Care Retail Customer Service Representative Name Role Phone Tobias Penn MD Primary Care Prov ider Reason for Visit * Reason Comments Med Refill Encounter Details Date Type Department Care Team (Late st Contact Info) Description 07/07/2025 Refill [facility] [address] [place], [place] [phone] Tobias Penn MD [address] [place] [address] Social History Tobacco Use Types Packs/Day Years [...] documented as of this encounter Care Teams Retail Customer Service Representative Relationship Specialty Start Date End Date KayTobias Marcus MD [address] [place] [phone] PCP - General Internal Medicine 02/26/25 documented as of this encounter
--- OUTSIDE RECORDS SUMMARY | 2025-10-28 16:02 | XMS_ITS | Encounter Summary ---
Author Organization [employer] Address [address] [facility] [address] 7[address] [place] [address] Care Team Providers Care Lift Electrician Name Role Phone Tobias Penn MD Primary Care Prov ider Encounter Details Date Type Department Care Team (Late st Contact Info) Description 10/16/2025 Telephone [facility] [address] [place] [address] Tobias Penn MD 505 [place], [place] [phone] Social History Tobacco Use Types Packs/Day Years [...] the past 12 months, has t he [employer], gas, oil or water company threatened to [...] documented as of this encounter Care Teams Lift Electrician Relationship Specialty Start Date End Date Tobias Penn MD [address] [place] [phone] PCP - General Internal Medicine 02/26/25 documented as of this encounter
--- OUTSIDE RECORDS SUMMARY | 2025-10-28 16:02 | XMS_ITS | Clinical Summary ---
Author Organization [employer] Address [address] [facility] [address] 7t h Floor [address] Care Team Providers Care Returns Clerk Name Role Phone Tobias Penn MD Primary Care Prov ider Allergies Active Allergy Reactions Criticality Noted Date Comments Naproxen Unknown 10/02/2025 Nsaids Anaphylaxis,Other High 02/26/2025 Non-steroidal anti-inflammatory agent (substance) Shellfish Allergy Other 03/26/2017 shellfish derived Medications * This document contains information received from the source organization and may not represent a complete record from that organization. EPINEPHrine (Epipen) 0.3 MG/0.3ML injection syringe Inject [...] THE MORNING 90 tablet 08/07/20 25 Active Dupilumab (Dupixent) 100 MG/0.67ML solution prefilled syringe Inject 300 mg under the skin every 14 (fourteen) days. Active omeprazole (PriLOSEC) [address] capsule TAKE 1 CAPSULE(20 MG) BY MOUTH DAILY 90 capsule 10/01/20 25 Active Fluticasone Furoate-Vilant mauro (Breo Ellipta) 200-25 MCG/ACT aerosol powder Inhale 1 puff Once per day. INHALE 1 PUFF BY MOUTH ONCE A DAY 60 each 2 10/16/20 25 Active clonazePAM (KlonoPIN) 0.5 MG tablet TAKE 1 TABLET BY MOUTH EVERY MORNING AND 1 TABLET EVERY DAY IN THE AFTERNOON AND 2 TABLETS BY MOUTH EVERY NIGHT AT BEDTIME Do not start before November 03, 2025. 120 tablet 11/03/20 Active Omeprazole 20 MG tablet delayed-releas e Take 1 tablet (20 mg) by mouth Once per day. 90 tablet 05/11/20 25 025 Discontinued Fluticasone Furoate-Vilant mauro (Breo Ellipta) 200-25 MCG/ACT aerosol powder Inhale 1 puff Once per day. 60 each 2 05/11/20 25 025 Discontinued(Re order (will not trigger notification to Pharmacy)) clonazePAM (KlonoPIN) 0.5 MG tablet TAKE 1 TABLET BY MOUTH EVERY AM, EVERY AFTERNOON AND 2 TABLETS EVERY NIGHT AT BEDTIME 120 tablet 08/21/20 25 025 Discontinued clonazePAM (KlonoPIN) 0.5 MG tablet TAKE 1 TABLET BY MOUTH IN THE MORNING AND 1 TABLET EVERY DAY IN THE AFTERNOON AND 2 TABLETS AT BEDTIME 120 tablet 10/02/20 25 025 Discontinued amoxicillin-cl avulanate (Augmentin) 875-125 MG tablet Take 1 tablet by mouth 2 times daily for 7 days. 14 tablet 10/12/20 25 025 predniSONE (Deltasone) 20 MG tablet Take 2 tablets (40 mg) by mouth Once per day for 5 days. 10 tablet 10/12/20 25 025 Active Problems Problem Noted Date Diagnosed Date Severe persistent asthma without complication Pulmonary nodules 10/02/2025 Impacted cerumen of right ear 06/01/2025 Assessment & Plan (06/01/2025 3:19 PM EDT): Will send debrox, schedule a nurse visit in 1 week for ear flush if neeeded Urinary frequency 06/01/2025 Assessment & Plan (06/01/2025 3:28 PM EDT): Urine test was negative, told to remain well hydrated, Gastroesophageal reflux disease without esophagi tis 05/11/2025 Assessment & Plan (09/01/2025 11:10 AM EDT): On omeprazole, keep lifestyle modifications, follow up in 4 months Assessment & Plan (05/11/2025 9:00 AM EDT): Renew omeprazole, lifestyle modifications reinforced, call back if worsening Moderate persistent asthma without complication 05/11/2025 Assessment & Plan (09/01/2025 11:11 AM EDT): Patient is concerned about dupixent risk for cancer, told to discuss risk vs benefits with pulmonology and if there are other treatment options, currently his symptoms are well controlled Assessment & Plan (06/01/2025 3:18 PM EDT): [...] ago, pcp is retiring ER: 02/20 anxiety [place] Hospitalization: asthma [place] 2022, anxiety 2012 Pmhx: [...] Will refer to therapist, no suicidal/homicidal ideas Chronic rhinitis 08/08/2021 Overview (10/02/2025): Chronic rhinitis; Note: Date Diagnosed: 08/08/2021 2:19 PM (J31.0) Deviated nasal septum 08/08/2021 Overview (10/02/2025): Deviated nasal septum; Note: Date Diagnosed: 08/08/2021 2:20 PM (J34.2) Epistaxis 08/08/2021 Overview (10/02/2025): Epistaxis; Note: Date Diagnosed: 09/01/2015 8:42 AM () 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 08/08/2021 Overview (10/02/2025): Coagulation defects: Other hemorrhagic disorder due to intrinsic circulating anticoagulants, antibodies, or inhibitors; Note: Date Diagnosed: 09/01/2015 8:41 AM () detention current use of anticoagulant therapy 0 08/08/2021 Overview (10/02/2025): detention (current) use of anticoagulants; Note: Date Diagnosed: 09/01/2015 8:42 AM () Polyp of nasal cavity 08/08/2021 Overview (10/02/2025): Polyp of nasal cavity; CMS Risk: moderate risk Note: Date Diagnosed: 09/01/2015 8:43 AM (J33.0) Encounters Date Type Department Care Team Description 10/23/2025 Refill [facility] MED [facility] PEDS [address] [place], [place] [phone] Tobias Penn MD 10/16/2025 Refill [facility] [address] [place], [place] [phone] Tobias Penn MD 10/16/2025 Telephone [facility] [address] [place] [phone] Tobias Penn MD 10/12/2025 7:00 PM EST Telemedicine [facility] [address] [place] [address] Tobias Penn MD Acute non-recurrent maxillary sinusitis (Primary Dx) 10/12/2025 Telephone [facility] [address] [place] [address] Tobias Penn MD Nurse Triage 10/02/[address] [address] Narcisa Andres MD No Show 10/01/2025 Refill [facility] [address] [place] [address] Tobias Penn MD 10/01/[address] [address] Tobias Penn MD Nurse Triage 09/30/2025 Refill [facility] [address] [place] [address] Tobias Penn MD 09/01/2025 8:45 AM EDT Telemedicine [facility] [address] [place] [address] Tobias Penn MD Gastroesophageal reflux disease without esophagitis (Primary Dx); Moderate persistent asthma without complication 09/01/2025 Travel 08/31/2025 Travel 08/31/2025 Telephone [facility] [address] [place] [address] Tobias Penn MD Chart Prep 08/18/2025 Refill [facility] [address] [place] [address] Tobias Penn MD 08/05/2025 Refill [facility] [address] [place] [address] Tobias Penn MD from Last 3 Months Immunizations Immunization Administration [...] 06/01/2025 2:22 PM EDT Plan of Treatment Health Maintenance Due Date Last Done Comments CT Colonography 1967 Colonoscopy 1967 Colorectal Cancer Screening 1967 FIT DNA/Cologuard 1967 FIT 1967 FOBT 1967 HIV Screening 1967 Sigmoidoscopy 1967 Hepatitis B Vaccines (1 of 3 - 19+ 3-dose series) 1986 Pneumococcal Vaccine: 50+ Years (1 of 2 - PCV) 1986 DTaP/Tdap/Td Vaccines (1 - Tdap) 06/22/2012 06/21/2012 RSV Patients and Patients Aged 60 years or older (1 - Risk 50-74 years 1-dose series) 2017 Zoster Vaccines (1 of 2) 2017 COVID-19 Vaccine (3 - season) 2025 02/09/2021, 01/12/2021 Influenza Vaccine (#1) 2025 , 08/03/2021, 09/21/2020, Additional history exists Alcohol/Substance Use Screening 02/26/2026 02/26/2025 SDOH Screening 02/26/2026 02/26/2025 Tobacco Screening 06/01/2026 06/01/2025 Disability Screening 06/08/2026 06/08/2025 Depression Screening 06/15/2026 06/15/2025, 06/15/20 25 Lipid Panel 06/02/2030 06/02/2025 Hepatitis C Screening Completed 06/02/2025 HIB Vaccines [...] Name Priority Date/Time Associated Diagnosis Comments PSA, TOTAL WITH REFLEX TO PSA, FREE Routine 10/28/2025 1:41 PM EST HEPATITIS C AB W/REFL TO HCV RNA, [...] (BMI) of 30.0 to 30.9 in adult from Last 3 Months or Most Recently Relevant to Health Maintenance Results * PSA, Total With Reflex to PSA, Free (10/28/2025 1:41 PM EST) PSA,Total (Free>4and<10) 2.76 0.00 - 4.00 ng/mL [facility] Comment:A Free PSA was not p erformed: The percentage of Free PSA can be used to enhance the differentiation of prostate cancer from benign prostatic disease in subjects whose PSA levels are between 4.0 and 10.0 ng/mL. For subjects whose PSA levels are below 4.0 or above 10.0 ng/mL, the risk of prostate cancer is determined on the basis of the PSA alone. Therefore the % Free PSA is recommended only for those subjects whose PSA levels are between 4.0 and 10.0 ng/mL.PSA methodology: Forman Alinity i ChemiluminescentMicroparticle Immunoassay (CMIA) 10/28/2025 1:41 PM EST 10/28/2025 1:41 PM EST Generic External Data Provider LAB BLOOD ORDERAB LES Final Result Performing Organization Address [facility] Co de Phone Number [facility] [address] [place] [phone] * Hepatitis C Antibody with Reflex to HCV, RNA, Quantitative, Real-Time PCR (06/02/2025 2:58 PM EDT) Hepatitis C Antibody Nonreactive Nonreactive [facility] Comment:Antibodies to HCV no t detected; does not exclude early acuteHCV infection. Blood Venous blood specimen / Unknown 06/02/2025 2:58 PM EDT 06/02/2025 5:13 PM EDT Tobias Reilly MD LAB BLOOD ORDERABL ES Final Result Performing Organization Address [facility] Co de Phone Number [facility] [address] [place] [phone] * (ABNORMAL) Lipid Panel, Standard (06/02/2025 2:58 PM EDT) Triglycerides 60 <150 mg/dL [facility] Comment:Desirable Triglyceri de: less than 150 mg/dLBorderline High Triglyceride 150-199 mg/dLHigh Triglyceride: 200-499 mg/dLVery High Triglyceride: greater than or equal to 5OO mg/dL Cholesterol 167 <200 mg/dL [facility] Comment:Desirable Cholestero l: less than 200 mg/dLBorderline High Cholesterol: 200-239 mg/dLHigh Cholesterol: greater than 239 mg/dL LDL Cholesterol Calculated 116(H) <100 mg/dL [facility] Comment:Desirable LDL: less than 100 mg/dLNear Optimal/Above Optimal LDL: 110- 129 mg/dLBorderline High LDL: 130-159 mg/dLHigh LDL: 160-189 mg/dLVery High LDL: greater than or equal to 190 mg/dL HDL Cholesterol 39(L) >40 mg/dL [facility] Comment:Desirable HDL: great er than 40 mg/dL Note: This HDL assay may give artificially low results in patients with liver disease. Blood Venous blood specimen / Unknown 06/02/2025 2:58 PM EDT 06/02/2025 5:13 PM EDT Tobias Reilly MD LAB BLOOD ORDERABL ES Final Result [facility] [address] [place] [address] [phone] from Last 3 Months or Most Recently Relevant to Health Maintenance Insurance [facility] STANDARD MEDICARE Care Teams Returns Clerk Relationship Specialty Start Date End Date KayTobias Marcus MD [address] [place] [phone] PCP - General Internal Medicine 02/26/25
== END 2025-10-28 13:29 | disposition home or self-care (01) ==
LOC: HO.LAB 13:28
PROVIDERS: PCP Internal Medicine; Visit Provider Urology
DX: N41.9 Inflammatory disease of prostate, unspecified (principal); Z12.5 Encounter for screening for malignant neoplasm of prostate
CPT/HCPCS: 36415; 84153

== ENCOUNTER 2025-11-06 14:25 | Outpatient (AMB) | payer MEDICARE, MEDICAID, SELFPAY ==
--- NOTE | 2025-11-06 14:25 | MHC.OFFVIS ---
Intake Visit Reasons: 3M PSA(set) Intake Note: Reason for Visit: Telehealth PSA Results Urology Meds: None Blood Thinners: None Labs: PSA- 2.76 (10/28/2025) Imaging: None Last PVR:None Optician Manager Required: No Accompanied by: Self / Same As Patient Allergies shellfish derived Allergy (Severe, Verified 11/06/25 14:26) ANAPHYLAXIS ibuprofen Allergy (Intermediate, Verified 11/06/25 14:26) Shortness of Breath mold (MOLD) Allergy (Intermediate, Verified 11/06/25 14:26) ASTHMA EXACERBATION NSAIDS (Non-Steroidal Anti-Inflamma Allergy (Verified 11/06/25 14:26) Anaphylaxis DUST Allergy (Intermediate, Uncoded 11/06/25 14:26) ASTHMA EXACERBATION HPI Comments Details: Gabriel is a very pleasant male. He is a patient of Dr. Reilly. He is seen for the following urologic conditions - elevated PSA - prostatitis Telemedicine Evaluation 15 min Consultation [employer] Video Follow-up for elevated PSA Repeat testing shows significant drop Consistent with episode of prostatitis PSA - 06/19 5.2, 11/19 2.7 Follow-up 12 month repeat PSA Review of Systems Const All systems reviewed & are unremarkable except as noted in HPI and below Reports no additional complaints Resp Reports no additional complaints GI Reports no additional complaints Reports as per HPI Musc Reports no additional complaints Physical Exam Telemedicine evaluation Appropriate responses Regular breathing rate and rhythm HEENT Head: Yes normal to inspection Ears: hearing grossly normal bilaterally Eyes General: appearance normal, both eyes and all related structures Neck Neck: Yes normal visual inspection Chest Chest palpation & inspection: normal inspection of the chest Resp Effort & Inspection: normal respiratory effort and able to speak in complete sentences Telehealth Telehealth Telehealth Platform: [employer] Location of provider rendering services: practice address Location of patient: address on file Patient Identification confirmed using: Name, : Yes Telehealth method: video Patient verbally consented to treatment: Yes Patient verbally consented to billing insurance company: Yes Patient informed of any privacy concerns related to visit: Yes Minutes spent on Phone/Video with Pt.: 15 Assessment & Plan Assessment & Plan (1) Prostatitis: Code(s): N41.9 - Inflammatory disease of prostate, unspecified Category: Medical Plan Twelve month follow-up repeat PSA Orders: Orders Prostate Specific Antigen 12 Months N41.9 - Inflammatory disease of prostate, unspecified Patient Instructions: This note is constructed using voice recognition software. While every effort has been made to ensure accuracy senior java programmer errors may have been included. Imaging studies, laboratory and physical exam results were discussed and reviewed in detail. No major barriers to patient understanding were identified. An opportunity to ask questions regarding the treatment plan was provided. All questions were answered. The patient expressed understanding and agreement with the above treatment plan. The patient is aware they should contact our office by phone for worsening of their current condition or the appearance of new urologic symptoms. Compliance is encouraged with any medications and followup testing that is ordered. It is a privilege to participate in the urologic care of your patient. If you have any questions or concerns regarding treatment for the above conditions, or other urologic issues, please do not hesitate to contact me. The office telephone contact is [phone]. Sincerely, Dr Adonis Montilla MD, [facility] - Urology Compassionate Specialist Care for the Genitourinary System Coding Level of Care Code Tele Est Pt Level 3 (56616) Diagnoses Prostatitis N41.9
--- OUTSIDE RECORDS SUMMARY | 2025-11-06 19:39 | XMS_ITS | Encounter Summary ---
Author Organization [employer] Address [address] [facility] [address] 7[address] [place] [address] Care Team Providers Care Recreational Assistant Name Role Phone Tobias Penn MD Primary Care Prov ider Reason for Visit * Reason Onset Date Comments Med Refill 11/05/2025 Encounter Details Date Type Department Care Team (Late st Contact Info) Description 11/05/2025 Telephone [facility] [address] [place] [address] Tobias Penn MD [address] [place], [place] [phone] Med Refill Social History Tobacco Use Types Packs/Day Years [...] encounter Miscellaneous Notes * Telephone Encounter - Yadira Lux - 11/05/2025 2:13 PM EST TC from pt requesting med refill for Ventolin inhaler but property underwriter don't see on med list. PCP Dr. Kay * Telephone Encounter - Yadira Lux - 11/05/2025 2:12 PM EST TC from pt requesting a med refill : PARoxetine (Paxil) [address] Kay documented in this encounter Plan of Treatment Not on file documented as of this encounter Visit Diagnoses Diagnosis Current mild episode of major depressive disorder without prior episode (CMS/HCC) documented in this encounter Additional Health Concerns Assessment Noted Time PHQ-9 Depression Total Score: 5 06/15/20 1:37 PM EDT documented as of this encounter Care Teams Recreational Assistant Relationship Specialty Start Date End Date Tobias Penn MD [address] [place] [phone] PCP - General Internal Medicine 02/26/25 documented as of this encounter
--- OUTSIDE RECORDS SUMMARY | 2025-11-06 19:39 | XMS_ITS | Data Portability ---
Author Organization [place] [facility], Allergy Address [address] [address] Care Team Providers Care Veterinary Bacteriologist Name Role Phone EDUARDO BAILEY Primary Care Provider [phone] Assessment Encounter Date Assessment Date Assessment LastModified [...] Go To The Location Of Their Choice, [address] 4 01:16:20 Referral None record ed. Procedures [...] /uL 3.4-10 .8 normal Not Available [facility] ([facility]) [address] [facility], [place], [address], 11/14/2024 01:16:20 11/13/20 24 11/14/2024 CBC WITH DIFFE RENTI AL/PL ATELE T RBC 4.98 x10e6 /uL 4.14-5 .80 normal Not Available [facility] ([facility]) [address] [place], [address], 11/14/2024 01:16:20 11/13/20 24 11/14/2024 CBC WITH DIFFE RENTI AL/PL ATELE T hemoglobin 15.8 g/dL 13.0-1 7.7 normal Not Available [facility] ([facility]) [address] [place], [address], 11/14/2024 01:16:20 11/13/20 24 11/14/2024 CBC WITH DIFFE RENTI AL/PL ATELE T hematocrit 45.9 % 37.5-5 1.0 normal Not Available [facility] ([facility]) [address] [place], [address], 11/14/2024 01:16:20 11/13/20 24 11/14/2024 CBC WITH DIFFE RENTI AL/PL ATELE T MCV 92 fL 79-97 normal Not Available [facility] ([facility]) [address] [place], [address], 11/14/2024 01:16:20 11/13/20 24 11/14/2024 CBC WITH DIFFE RENTI AL/PL ATELE T MCH 31.7 pg 26.6-3 3.0 normal Not Available [facility] ([facility]) [address] [place], [address], 11/14/2024 01:16:20 11/13/20 24 11/14/2024 CBC WITH DIFFE RENTI AL/PL ATELE T MCHC 34.4 g/dL 31.5-3 5.7 normal Not Available [facility] ([facility]) [address] [facility], [place], [address], 11/14/2024 01:16:20 11/13/20 24 11/14/2024 CBC WITH DIFFE RENTI AL/PL ATELE T RDW 12.4 % 11.6-1 5.4 Not Available [facility] ([facility]) [address] [place], [address], 11/14/2024 01:16:20 11/13/20 24 11/14/2024 CBC WITH DIFFE RENTI AL/PL ATELE T platelets 172 x10e3 /uL 150-45 0 normal Not Available [facility] ([facility]) [address] [facility], [place], [address], 11/14/2024 01:16:20 11/13/20 24 11/14/2024 CBC WITH DIFFE RENTI AL/PL ATELE T neutrophils 54 % not estab. normal Not Available [facility] ([facility]) [address] [place], [address], 11/14/2024 01:16:20 11/13/20 24 11/14/2024 CBC WITH DIFFE RENTI AL/PL ATELE T lymphs 26 % not estab. normal Not Available [facility] ([facility]) [address] [place], [address], 11/14/2024 01:16:20 11/13/20 24 11/14/2024 CBC WITH DIFFE RENTI AL/PL ATELE T monocytes 8 % not estab. normal Not Available [facility] ([facility]) [address] [place], [address], 11/14/2024 01:16:20 11/13/20 24 11/14/2024 CBC WITH DIFFE RENTI AL/PL ATELE T eos 11 % not estab. normal Not Available [facility] ([facility]) [address] [place], [address], 11/14/2024 01:16:20 11/13/20 24 11/14/2024 CBC WITH DIFFE RENTI AL/PL ATELE T basos 1 % not estab. normal Not Available [facility] ([facility]) [address] [place], [address], 11/14/2024 01:16:20 11/13/20 24 11/14/2024 CBC WITH DIFFE RENTI AL/PL ATELE T immature cells PSYCHOTHERAPIST SOCIAL WORKER Not Available [facility] ([facility]) [address] [place], [address], 11/14/2024 01:16:20 11/13/20 24 11/14/2024 CBC WITH DIFFE RENTI AL/PL ATELE T neutrophils (absolute) 3.3 x10e3 /uL 1.4-7. 0 normal Not Available [facility] ([facility]) [address] [place], [address], 11/14/2024 01:16:20 11/13/20 24 11/14/2024 CBC WITH DIFFE RENTI AL/PL ATELE T lymphs (absolute) 1.6 x10e3 /uL 0.7-3. 1 normal Not Available [facility] ([facility]) [address] [place], [address], 11/14/2024 01:16:20 11/13/20 24 11/14/2024 CBC WITH DIFFE RENTI AL/PL ATELE T monocytes(ab solute) 0.5 x10e3 /uL 0.1-0. 9 normal Not Available [facility] ([facility]) [address] [place], [address], 11/14/2024 01:16:20 11/13/20 24 11/14/2024 CBC WITH DIFFE RENTI AL/PL ATELE T eos (absolute) 0.7 x10e3 /uL 0.0-0. 4 above high normal Not Available [facility] ([facility]) [address] [facility], [place], [address], 11/14/2024 01:16:20 11/13/20 24 11/14/2024 CBC WITH DIFFE RENTI AL/PL ATELE T baso (absolute) 0.1 x10e3 /uL 0.0-0. 2 normal Not Available [facility] ([facility]) [address] [facility], [place], [address], 11/14/2024 01:16:20 11/13/20 24 11/14/2024 CBC WITH DIFFE RENTI AL/PL ATELE T immature granulocytes 0 % not estab. Not Available [facility] ([facility]) [address] [facility], [place], [address], 11/14/2024 01:16:20 11/13/20 24 11/14/2024 CBC WITH DIFFE RENTI AL/PL ATELE T immature grans (abs) 0.0 x10e3 /uL 0.0-0. 1 Not Available [facility] ([facility]) [address] [facility], [place], [address], 11/14/2024 01:16:20 11/13/20 24 11/14/2024 CBC WITH DIFFE RENTI AL/PL ATELE T NRBC PSYCHOTHERAPIST SOCIAL WORKER Not Available [facility] ([facility]) [address] [facility], [place], [address], 11/14/2024 01:16:20 11/13/20 24 11/14/2024 CBC WITH DIFFE RENTI AL/PL ATELE T hematology comments: PSYCHOTHERAPIST SOCIAL WORKER Not Available [facility] ([facility]) [address] [facility], [place], [address], 11/14/2024 01:16:20 Result Notes None recorded. 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 068499160 Active 2020 Coagulatio n defects: Other hemorrhagi c disorder due to intrinsic circulatin g anticoagul ants, antibodies , or inhibitors ; Note: Date Diagnosed: 09/01/2015 8:41 AM () Not Available [facility] 4 02:39:42 Disorder of respirato ry system 94151670 Active 2020 Respirator y conditions due to other specified external agents; CMS Risk: moderate risk Note: Date Diagnosed: 09/01/2015 8:43 AM (J70.8) Not Available [facility] 4 02:39:44 Chronic rhinitis 97004658 Active 2020 Chronic rhinitis; Note: Date Diagnosed: 08/08/2021 2:19 PM (J31.0) Not Available [facility] 4 02:39:38 Uncomplic ated moderate persisten t asthma 235945108 Active 2020 Moderate persistent asthma, uncomplica ksenia; Note: Date Diagnosed: 08/08/2021 2:24 PM (J45.40) Not Available [facility] 4 02:39:35 Deviated nasal septum 094853813 Active 2020 Deviated nasal septum; Note: Date Diagnosed: 08/08/2021 2:20 PM (J34.2) Not Available [facility] 4 02:39:38 Epistaxis Active 2020 Epistaxis; Note: Date Diagnosed: 09/01/2015 8:41 AM () Not Available [facility] 4 02:39:36 Long-term current use of anticoagu lant 645340640 Active 2020 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; Note: Date Diagnosed: 09/01/2015 8:42 AM () Not Available [facility] 4 02:39:41 Polyp of nasal cavity 467811504 Active 2020 Polyp of nasal cavity; CMS Risk: moderate risk Note: Date Diagnosed: 09/01/2015 8:43 AM (J33.0) Not Available [facility] 4 02:39:44 Bleeding from nose 768554430 Active 2020 Epistaxis; Note: Date Diagnosed: 09/01/2015 8:42 AM () Not Available [facility] 4 02:39:39 Acute sinusitis 87300204 Active 2021 Other acute sinusitis; Note: Date Diagnosed: 06/01/2022 4:44 PM (J01.80) Not Available [facility] 4 02:39:36 Acute upper respirato ry infection 17516954 Active 2022 Acute upper respirator y infection, unspecifie d; Note: Date Diagnosed: 12/19/2022 8:10 AM (J06.9) Not Available [facility] 4 02:39:32 Chronic sinusitis 65625288 Active 2023 MICHAEL BUSTOS MD [address] [place], [place] [address], [address] , [facility] - [facility] 4 17:13:20 Moderate persisten t asthma 494348963 Active 2023 MICHAEL BUSTOS MD [address] [place], [place] [address], [address] , [facility] - [facility] 4 15:02:05 Polyp of nasal cavity and/or nasal sinus 057457468 Active 2023 MICHAEL BUSTOS MD [address] [place], [place] [address], [address] , [facility] - [facility] 4 15:02:05 Problem Notes None recorded. Procedures Surgical History Date Name Laterality Status Provider Name and Address Organization Details Recorded Time 4 JMSNasal/Sinu s Endoscopy-SUMIT OR surgical cavities completed MICHAEL KLEIN MD [address] [place] [address], [phone], [facility] - [facility] 08/14/2024 21:07:59 Imaging Results None recorded. Procedure Notes None recorded. Medical Equipment None Reported. Allergies Allergen ID Allergen Name Allergen Category Reaction Reaction Severity Criticality Documentation Date Start Date Code Code System Note Provider Name and Address Organization Details Recorded Time 63439 Non-stero idal anti-infl ammatory agent (substanc e) medicatio n other Not available Not available 04/08/2024 76597 5008 SNOMED React ion: other react ion, Unkno wn; Not Available [facility] 4 01:00:30 28444 shellfish derived food,medi cation other Not available Not available 04/08/2024 React ion: other react ion, Unkno wn; Not Available [facility] 4 01:00:33 Medications Name Sig Start Date [...] 100 mg capsule active Medicati on ID: [id number] B rand Name: doxycycl ine hyclate Send Method: E-Prescr ibed Sub s Allowed: subs OK Medic ationGen ericName : doxycycl ine hyclate Not Available Not Available Not Available prednison e 20 mg tablet 2022 active Medicati on ID: [id number] D uration Value: 9 Brand Name: predniso [...] a day 2021 active Medicati on ID: [id number] D uration Value: 10 Brand Name: sulfamet [...] 500 mg tablet active Medicati on ID: [id number] B rand Name: levoflox acin Sen d [...] Available Saline 03/16 completed Medicati on ID: [id number] D uration Value: 30 Prescri bed By [...] auto-inje ctor 06/28 completed Medicati on ID: [id number] B rand Name: Nucala S end Method: [...] Updated DateTime 11/13/2024 182.88 cm 30.5 kg/m2 819081.28 g Phoenix Reilly [place] - [facility] 11/13/2024 14:44:48 Social History None recorded. Functional Status None recorded. Mental Status None recorded. Family History Nothing Reported. Medical History No medical history recorded. Past Encounters Encounter ID Performer Location Encounter Start Date Encounter Closed Date Diagnosis/Indication Diagnosis SNOMED-CT Code Diagnosis ICD10 Code Diagnosis IMO Codes Diagnosis Note [id number] MICHAEL BUSTOS MD [facility] [address] [address] 11/13/2024 14:27:21 11/13/2024 15:10:19 Allergy to drug 082414792 Z88.6 Polyp of n lyric cavity and/or nasal sinus 192212942 J33.1 Moderate p ersistent asthma 893413561 J45.40 Disorder o f respiratory system 39357810 J70.8 Health Concerns Section Related Observation LastModified by Organization Detai ls LastModified Time None Recorded Concern Status LastModified by Organization Details LastModified Time None Recorded Advance Directives Directive None Recorded Payers Insurance Date Sequence Insurance Name Policy Number Policy Crawford Covered Member ID Crawford Member ID Guarantor Name 08/13/2025 2 [place] [facility] Gabriel Krishnamurthy [id number] Gabriel Reilly [employer] 08/13/2025 2 [place] [facility] Gabriel Krishnamurthy [id number] Gabriel Reilly [employer] 08/13/2025 1 [place] B-[place] [facility] Gabriel Krishnamurthy [id number] Gabriel Reilly [employer] 08/13/2025 2 [place] [facility] Gabriel Krishnamurthy [id number] Gabriel Krishnamurthy Notes Date Note Type Note Provider Name and Address Organization Details Recorded Time 11/13/2024 text/html AERD with polyps. Surgery schedule spring 2022 but cx due to illness Patient with history of aspirin exacerbated respiratory disease. They are presently using topical budesonide irrigations. They are taking fexofenadine and Breo < >They have not previously undergone endoscopic sinus surgery . < >Presently are not experiencing asthma symptoms < > Their sense of smell is normal. < > They are presently taking biologic therapy Jack had previously tried Nucala but seems to do better on Dupixent MICHAEL KLEIN MD [address] [place] [address], [place], [address], [place] [facility] 11/13/2024 15:05:14
--- OUTSIDE RECORDS SUMMARY | 2025-11-06 19:39 | XMS_ITS | Patient Health Record ---
Author Organization [facility] Address [address] [facility] [place] [address] Care Team Providers Care Copy Director Name Role Phone Pan Stevens MD Primary Care Provider Yohannes Arriaga Unavailable [phone] Allergies Allergen (clinical drug ingredient) Drug/Non Drug [...] Medicare National [employer] [address] [place] [address] [id number] Reese naylor Gabriel Self - patient is the insured Medical (General) History Medical History History ICD Code asthma covid-19 Chicken pox Surgical History Surgery Date(Month/Year)
--- OUTSIDE RECORDS SUMMARY | 2025-11-06 19:39 | XMS_ITS | Encounter Summary ---
Author Organization [employer] Address [address] [place] [address] Care Team Providers Care Plug Shaper Hand Name Role Phone Tobias Penn MD Primary Care Prov ider Encounter Details Date Type Department Care Team (Late st Contact Info) Description 10/16/2025 Telephone [facility] MEDICINE [address] [place] [address] Tobias Penn MD [address] [place], [place] [phone] Social History Tobacco Use Types Packs/Day Years [...] the past 12 months, has t he [employer], gas, oil or water company threatened to [...] documented as of this encounter Care Teams Plug Shaper Hand Relationship Specialty Start Date End Date Tobias Penn MD [address] [place] [address] PCP - General Internal Medicine 02/26/25 documented as of this encounter
--- OUTSIDE RECORDS SUMMARY | 2025-11-06 19:39 | XMS_ITS | Clinical Summary ---
Author Organization [employer] Address [address] [place] [address] Care Team Providers Care Mechanical Reliability Engineer Name Role Phone Tobias Penn MD Primary [...] day. 16 g 3 05/11/20 25 Active Dupilumab (Dupixent) 100 MG/0.67ML solution [...] before November 03, 2025. 120 tablet 11/03/20 25 Active PARoxetine (Paxil) 20 MG tabletIndicati ons:Current mild episode of major depressive disorder without prior episode (CMS/[facility]) Take 1 tablet (20 mg) by mouth in the morning. 90 tablet 11/05/20 Active Fluticasone Furoate-Vilant mauro (Breo Ellipta) 200-25 MCG/ACT aerosol powder Inhale 1 puff Once per day. 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 0 08/08/2021 Overview (10/02/2025): [facility] (current) use of anticoagulants; Note: Date Diagnosed: 09/01/2015 8:42 AM () Polyp of nasal cavity 08/08/2021 Overview (10/02/2025): Polyp of nasal cavity; CMS Risk: moderate risk Note: Date Diagnosed: 09/01/2015 8:43 AM (J33.0) Encounters Date Type Department Care Team Description 11/05/2025 Telephone [facility] MEDICINE [address] [place] [address] Tobias Penn MD Med Refill 10/23/2025 Refill [facility] [address] [place] [address] Tobias Penn MD 10/16/2025 Refill [facility] [address] [place] [address] Tobias Penn MD 10/16/2025 Telephone [facility] [address] [place] [address] Tobias Penn MD 10/12/2025 7:00 PM EST Telemedicine [facility] [address] [place] [address] Tobias Penn MD Acute non-recurrent maxillary sinusitis (Primary Dx) 10/12/2025 Telephone [facility] [address] [place] [address] Tobias Penn MD Nurse Triage 10/02/2025 Telephone [facility] [address] [place] [address] Narcisa Andres MD No Show 10/01/2025 Refill [facility] [address] [place] [address] Tobias Penn MD 10/01/2025 Telephone [facility] [address] [place] [address] Tobias Penn MD Nurse Triage 09/30/2025 Refill [facility] [address] [place] [address] Tobias Penn MD 09/01/2025 8:45 AM EDT Telemedicine [facility] [address] [place] [address] Tobias Penn MD Gastroesophageal reflux disease without esophagitis (Primary Dx); Moderate persistent asthma without complication 09/01/2025 Travel 08/31/2025 Travel 08/31/2025 Telephone [facility] [address] [place] [address] Tobias Penn MD Chart Prep 08/18/2025 Refill [facility] [address] [place] [address] Tobias Penn MD from Last 3 Months [...] PSA,Total (Free>4and<10) 2.76 0.00 - 4.00 ng/mL [facility] Comment:A Free PSA was not [...] 1:41 PM EST 10/28/2025 1:41 PM EST us Generic External Data Provider LAB BLOOD ORDERAB LES Final Result Performing Organization Address [facility] Co de Phone Number [facility] [address] [place] [phone] * Hepatitis C Antibody with Reflex to HCV, RNA, Quantitative, Real-Time PCR (06/02/2025 2:58 PM EDT) Hepatitis C Antibody Nonreactive Nonreactive [facility] Comment:Antibodies to HCV no t detected; does not exclude early acuteHCV infection. Blood Venous blood specimen / Unknown 06/02/2025 2:58 PM EDT 06/02/2025 5:13 PM EDT Tobias Reilly MD LAB BLOOD ORDERABL ES Final Result Performing Organization Address [facility] de Phone Number [facility] [address] [place] [phone] * (ABNORMAL) Lipid Panel, Standard (06/02/2025 2:58 PM EDT) Triglycerides 60 <150 mg/dL [facility] Comment:Desirable Triglyceri de: less than 150 mg/dLBorderline High Triglyceride 150-199 mg/dLHigh Triglyceride: 200-499 mg/dLVery High Triglyceride: greater than or equal to 5OO mg/dL Cholesterol 167 <200 mg/dL [facility] Comment:Desirable Cholestero l: less than 200 mg/dLBorderline High Cholesterol: 200-239 mg/dLHigh Cholesterol: greater than 239 mg/dL LDL Cholesterol Calculated 116(H) <100 mg/dL [facility] Comment:Desirable LDL: less than 100 mg/dLNear Optimal/Above Optimal LDL: 110- 129 mg/dLBorderline High LDL: 130-159 mg/dLHigh LDL: 160-189 mg/dLVery High LDL: greater than or equal to 190 mg/dL HDL Cholesterol 39(L) >40 mg/dL [facility] Comment:Desirable HDL: great er than 40 mg/dL Note: This HDL assay may give artificially low results in patients with liver disease. Blood Venous blood specimen / Unknown 06/02/2025 2:58 PM EDT 06/02/2025 5:13 PM EDT Tobias Reilly MD LAB BLOOD ORDERABL ES Final Result [facility] [address] [place] [address] [phone] from Last 3 Months or Most Recently Relevant to Health Maintenance Insurance [place] [id number] Care Teams Mechanical Reliability Engineer Relationship Specialty Start Date End Date Tobias Penn MD [address] [place] [phone] PCP - General Internal Medicine 02/26/25
--- OUTSIDE RECORDS SUMMARY | 2025-11-06 19:39 | XMS_ITS | Encounter Summary ---
Author Organization [employer] Address [address] [place] [address] Care Team Providers Care Pastry Wrapper Name Role Phone Tobias Penn MD Primary Care Prov ider Reason for Visit * Reason Comments Med Refill Encounter Details Date Type Department Care Team (Late st Contact Info) Description 07/07/2025 Refill [facility] [address] [place], [place] [phone] Tobias Penn MD [address] [place] [address] Social History Tobacco Use Types Packs/Day Years [...] documented as of this encounter Care Teams Pastry Wrapper Relationship Specialty Start Date End Date KayTobias Marcus MD [address] [place] [address] PCP - General Internal Medicine 02/26/25 documented as of this encounter
--- OUTSIDE RECORDS SUMMARY | 2025-11-06 19:39 | XMS_ITS | Encounter Summary ---
Author Organization [employer] Address [address] [place] [address] Care Team Providers Care Shader And Toner Name Role Phone Tobias Penn MD Primary Care Prov ider Reason for Visit * Reason Onset Date Comments Medication Question 04/13/2025 Encounter Details Date Type Department Care Team (Late st Contact Info) Description 04/13/2025 Telephone [facility] MEDICINE [address] [place] [address] Tobias Penn MD [address] [place], [place] [phone] Medication Question Social History Tobacco Use Types [...] requesting call back. Please contact pt at [phone]. documented in this encounter Plan of Treatment Not on file documented as of this encounter Visit Diagnoses Not on filedocumented in this encounter Additional Health Concerns Assessment Noted Time PHQ-9 Depression Total Score: 8 03/03/20 25 9:29 AM EDT documented as of this encounter Care Teams Shader And Toner Relationship Specialty Start Date End Date Tobias Penn MD [address] [place] [address] PCP - General Internal Medicine 02/26/25 documented as of this encounter
== END 2025-11-06 15:43 | disposition home or self-care (01) ==
LOC: HO.HUSH 14:25
PROVIDERS: PCP Internal Medicine; Visit Provider Urology
DX: N41.9 Inflammatory disease of prostate, unspecified (principal)
CPT/HCPCS: 99213